=== PATIENT | female | born 1950 | race Caucasian/White ===

== ENCOUNTER 2017-04-28 18:24 | Inpatient (IN) | payer OTHER ==
[~2017-04-28] VITALS: Ht 170.2 cm; Wt 122.3 kg
[~2017-04-28 18:24] MED LIST: AUGMENTIN875 MG PO; FIORICET,ESG1 TABLET PO; KEFLEX500 MG PO; MEDROL DOSEPAK4 MG PO; MOTRIN600 MG PO; ULTRAM50 MG PO; UNABLEOBTAIN
[2017-04-28 19:18] LABS: HEMATOCRIT 39.7 % (36.0-46.0); HEMOGLOBIN 13.3 G/DL (11.9-15.5); MCH 26.8 PG (29.0-34.0); MCHC 33.5 G/DL (30.0-36.0); MCV 79.9 FL (83-99); PLATELET COUNT 286 K/uL (156-360); RBC DIS.WIDTH-CV 13.7 % (11.8-14.6); RBC DIS.WIDTH-SD 39.5 % (39-53); RED BLOOD COUNT 4.97 M/uL (3.80-5.20); WHITE BLOOD COUNT 10.4 K/uL (4.1-10.2)
[2017-04-28 19:29] LABS: CHLORIDE 89 mEq/L (99-109); POTASSIUM 5.3 mEq/L (3.7-5.4); SODIUM 122 mEq/L (136-147)
[2017-04-28 19:34] LABS: GFR ESTIMATE (CALCULATED) 12 mL/min/
[2017-04-28 19:35] LABS: UREA NITROGEN (BUN) 49 mg/dL (9-23)
[2017-04-28 19:41] LABS: TROP-I INTERPRETATION NEGATIVE; TROPONIN-I < 0.01 ng/mL (0.0-0.30)
[2017-04-28 19:48] LABS: GLUCOSE 600 mg/dL (70-99)
[2017-04-28 21:08] LABS: ALBUMIN 3.2 g/dL (3.2-4.8)
[2017-04-28 21:10] LABS: TOTAL PROTEIN 7.6 g/dL (6.4-8.3)
[2017-04-28 21:12] LABS: TOTAL BILIRUBIN 0.4 mg/dL (0.0-1.0)
[2017-04-28 21:13] LABS: ALKALINE PHOSPHATASE 165 IU/L (3-129)
[2017-04-28 21:16] LABS: ALT (GPT) 14 IU/L (3-49); AST (GOT) 11 IU/L (2-34); DIRECT BILIRUBIN 0.2 mg/dL (0.0-0.3)
[2017-04-28 21:17] LABS: LIPASE 28 U/L (1.0-51.0)
[2017-04-28 21:32] LABS: CARBON DIOXIDE (BICARBONATE) 29.1 MEQ/L (20-31)
[2017-04-28] MEDS ORDERED: BACTRIM,SEPT1 TABLET PO (21:46)
[2017-04-28] MEDS ORDERED: LYRICA75 MG PO (21:46)
[2017-04-28] MEDS ORDERED: LISINOPRIL-HCT1 EAC3 PO (21:47)
[2017-04-28] MEDS ORDERED: VERAPAMIL HCL240 MG PO (21:47)
[2017-04-28] MEDS ORDERED: GLIMEPIRIDE2 MG PO (21:47)
[2017-04-28] MEDS ORDERED: METFORMIN HCL1000 MG PO (21:48)
[2017-04-29 00:58] VITALS: BP 142/66
[2017-04-29 01:33] LABS: INTER. NORMALIZED RATIO 1.1
[2017-04-29 06:11] LABS: TROP-I INTERPRETATION NEGATIVE; TROPONIN-I < 0.01 ng/mL (0.0-0.30)
[2017-04-29 07:04] VITALS: BP 118/57
[2017-04-29 07:44] LABS: ALBUMIN 2.7 G/DL (3.2-4.8); CHLORIDE 94 MEQ/L (99-109); GLUCOSE 340 mg/dL (70-99); PHOSPHORUS 3.6 mg/dL (2.5-4.9); POTASSIUM 5.2 MEQ/L (3.7-5.4); UREA NITROGEN (BUN) 49 mg/dL (9-23)
[2017-04-29 07:50] LABS: CREATININE 3.3 MG/DL (0.6-1.3); GFR ESTIMATE (CALCULATED) 15 mL/min/; SODIUM 129 MEQ/L (136-147)
[2017-04-29 10:28] LABS: APPEARANCE SL.HAZY ((CLEAR)); BILIRUBIN NEGATIVE; BLOOD NEGATIVE; COLOR YELLOW ((YELLOW)); GLUCOSE (STRIP) >=500; KETONES NEGATIVE; LEUKOCYTES TRACE; NITRITE NEGATIVE; PROTEIN (STRIP) NEGATIVE; SPECIFIC GRAVITY 1.015 (1.000-1.030); UROBILINOGEN 0.2 MG/DL (0.2-1.0)
[2017-04-29 11:02] VITALS: BP 118/68
[2017-04-29 11:19] LABS: TROP-I INTERPRETATION NEGATIVE; TROPONIN-I < 0.01 ng/mL (0.0-0.30)
[2017-04-29 11:27] LABS: BACTERIA RARE /HPF; EPITHELIAL CELLS 1+ /HPF; MUCUS TRACE /LPF; RED BLOOD CELLS 0-5 /HPF (0-5); UCUL ADDED? YES
[2017-04-29 15:04] VITALS: BP 92/53
[2017-04-29 19:54] VITALS: BP 116/65
[2017-04-30] VITALS (7 sets, daily range): BP systolic 121–136; BP diastolic 60–75
[2017-04-30 07:27] LABS: BASOPHIL (%) 0.9 % (0-1); BASOPHIL COUNT 0.1 K/uL (0-0.1); EOSINOPHIL (%) 4.7 % (0-5); EOSINOPHIL COUNT 0.3 K/uL (0-0.3); HEMATOCRIT 34.7 % (36.0-46.0); IMMATURE GRANULOCYTE (%) 0.4 % (0.0-0.7); LYMPHOCYTE (%) 21.4 % (15-42); LYMPHOCYTE COUNT 1.5 K/uL (1.0-2.8); MCH 26.9 PG (29.0-34.0); MONOCYTE (%) 8.3 % (3-12); MONOCYTE COUNT 0.6 K/uL (0-0.8); NEUTROPHIL (%) 64.3 % (45-76); NEUTROPHIL COUNT 4.5 K/uL (1.8-6.4); PLATELET COUNT 235 K/uL (156-360); RBC DIS.WIDTH-CV 14.3 % (11.8-14.6); RBC DIS.WIDTH-SD 43.8 % (39-53); RED BLOOD COUNT 4.13 M/uL (3.80-5.20)
[2017-04-30 07:28] LABS: HEMOGLOBIN 11.1 G/DL (11.9-15.5)
[2017-04-30 07:40] LABS: INTER. NORMALIZED RATIO 1.3
[2017-04-30 07:43] LABS: PTT 58.3 SEC (25-37)
[2017-04-30 08:01] LABS: Estimated Average Glucose 355 mg/dL (70-123)
[2017-04-30 08:12] LABS: ALBUMIN 2.4 G/DL (3.2-4.8); C-REACTIVE PROTEIN 54.6 MG/L (0-10); CHLORIDE 103 MEQ/L (99-109); GLUCOSE 251 mg/dL (70-99); PHOSPHORUS 3.2 mg/dL (2.5-4.9); POTASSIUM 5.2 MEQ/L (3.7-5.4); UREA NITROGEN (BUN) 40 mg/dL (9-23)
[2017-04-30 08:15] LABS: CREATININE 2.5 MG/DL (0.6-1.3); GFR ESTIMATE (CALCULATED) 20 mL/min/; SODIUM 136 MEQ/L (136-147)
[2017-04-30 08:30] LABS: ERTH.SED.RATE 49 MM/HR (0-30)
[2017-05-01 04:03] VITALS: BP 126/62
[2017-05-01 06:23] LABS: HEMATOCRIT 31.8 % (36.0-46.0); HEMOGLOBIN 10.4 G/DL (11.9-15.5); MCH 27.5 PG (29.0-34.0); MCHC 32.7 G/DL (30.0-36.0); MCV 84.1 FL (83-99); PLATELET COUNT 231 K/uL (156-360); RBC DIS.WIDTH-CV 14.5 % (11.8-14.6); RBC DIS.WIDTH-SD 44.3 % (39-53); RED BLOOD COUNT 3.78 M/uL (3.80-5.20); WHITE BLOOD COUNT 7.8 K/uL (4.1-10.2)
[2017-05-01 06:38] LABS: INTER. NORMALIZED RATIO 1.9
[2017-05-01 07:36] LABS: ALBUMIN 2.3 G/DL (3.2-4.8); CHLORIDE 108 MEQ/L (99-109); CREATININE 2.2 MG/DL (0.6-1.3); GFR ESTIMATE (CALCULATED) 24 mL/min/; GLUCOSE 172 mg/dL (70-99); PHOSPHORUS 2.6 mg/dL (2.5-4.9); POTASSIUM 5.1 MEQ/L (3.7-5.4); SODIUM 140 MEQ/L (136-147); UREA NITROGEN (BUN) 36 mg/dL (9-23)
[2017-05-01 07:39] VITALS: BP 145/78
[2017-05-01 11:50] VITALS: BP 122/69
[2017-05-01 17:00] VITALS: BP 135/69
[2017-05-01 19:56] VITALS: BP 158/79
[2017-05-01 23:40] VITALS: BP 144/80
[2017-05-02 03:38] VITALS: BP 146/82
[2017-05-02 06:39] LABS: HEMATOCRIT 35.1 % (36.0-46.0); HEMOGLOBIN 10.9 G/DL (11.9-15.5); MCH 26.1 PG (29.0-34.0); MCHC 31.1 G/DL (30.0-36.0); MCV 84.2 FL (83-99); PLATELET COUNT 263 K/uL (156-360); RBC DIS.WIDTH-CV 14.4 % (11.8-14.6); RBC DIS.WIDTH-SD 44.1 % (39-53); RED BLOOD COUNT 4.17 M/uL (3.80-5.20); WHITE BLOOD COUNT 8.2 K/uL (4.1-10.2)
[2017-05-02 07:10] LABS: ALBUMIN 2.7 G/DL (3.2-4.8); CHLORIDE 106 MEQ/L (99-109); GFR ESTIMATE (CALCULATED) 26 mL/min/; GLUCOSE 204 mg/dL (70-99); PHOSPHORUS 3.1 mg/dL (2.5-4.9); POTASSIUM 5.2 MEQ/L (3.7-5.4); SODIUM 137 MEQ/L (136-147); UREA NITROGEN (BUN) 29 mg/dL (9-23)
[2017-05-02 08:01] VITALS: BP 141/72
[2017-05-02 12:16] VITALS: BP 159/70
[2017-05-02] MEDS ORDERED: ELIQUIS5 MG PO (12:25)
[2017-05-02 16:00] VITALS: BP 149/70
[2017-05-02 23:39] VITALS: BP 143/75
[2017-05-03 07:03] VITALS: BP 149/82
[2017-05-03 08:15] LABS: ALBUMIN 2.5 G/DL (3.2-4.8); CHLORIDE 105 MEQ/L (99-109); CREATININE 1.6 MG/DL (0.6-1.3); GFR ESTIMATE (CALCULATED) 34 mL/min/; GLUCOSE 191 mg/dL (70-99); PHOSPHORUS 3.2 mg/dL (2.5-4.9); POTASSIUM 5.6 MEQ/L (3.7-5.4); SODIUM 140 MEQ/L (136-147); UREA NITROGEN (BUN) 26 mg/dL (9-23)
[2017-05-03 15:32] VITALS: BP 147/71
[2017-05-03 21:00] VITALS: BP 132/75
[2017-05-04 00:05] VITALS: BP 134/76
[2017-05-04 07:04] LABS: ALBUMIN 2.4 G/DL (3.2-4.8); CHLORIDE 103 MEQ/L (99-109); CREATININE 1.8 MG/DL (0.6-1.3); GFR ESTIMATE (CALCULATED) 30 mL/min/; GLUCOSE 183 mg/dL (70-99); PHOSPHORUS 3.5 mg/dL (2.5-4.9); SODIUM 137 MEQ/L (136-147); UREA NITROGEN (BUN) 27 mg/dL (9-23)
[2017-05-04 07:25] VITALS: BP 121/67
[2017-05-04] MEDS ORDERED: POLYETHYLENE GL17 GM PO (11:07)
[2017-05-04] MEDS ORDERED: DOCUSATE SODIU100 MG PO (11:07)
[2017-05-04] MEDS ORDERED: BISACODYL5 MG PO (11:07)
[2017-05-04] MEDS ORDERED: GABAPENTIN600 MG PO (11:07)
[2017-05-04] MEDS ORDERED: TRAMADOL HCL50 MG PO (11:07)
[2017-05-04] MEDS ORDERED: LEVEMIR FL100 UNIT/1 SC (11:07)
[2017-05-04 16:12] VITALS: BP 119/63
[2017-05-04 23:33] VITALS: BP 118/67
[2017-05-05 07:15] VITALS: BP 140/77
[2017-05-05] MEDS ORDERED: GLIMEPIRIDE2 MG PO (16:32)
[2017-05-05 17:08] VITALS: BP 134/69
[2017-05-06 01:12] VITALS: BP 142/77
[2017-05-06 08:00] VITALS: BP 141/75
== END 2017-05-06 09:20 | disposition home health service (06) | DRG 300 ==
LOC: EME 18:24 → 5SOUTH 22:00 → EDOF 22:00 → ENRESERV 22:02 → 5SOUTH 04-29 00:30
PROVIDERS: Hospitalist; Internal Medicine; Physician Assistant
DX: I82.421 Acute embolism and thrombosis of right iliac vein (principal); N17.9 Acute kidney failure, unspecified; L03.115 Cellulitis of right lower limb; E11.65 Type 2 diabetes mellitus with hyperglycemia; L89.312 Pressure ulcer of right buttock, stage 2; L89.150 Pressure ulcer of sacral region, unstageable; L89.620 Pressure ulcer of left heel, unstageable; I82.431 Acute embolism and thrombosis of right popliteal vein; I82.411 Acute embolism and thrombosis of right femoral vein; I82.4Z1 Acute embolism and thrombosis of unspecified deep veins of right distal lower extremity; L03.116 Cellulitis of left lower limb; E11.40 Type 2 diabetes mellitus with diabetic neuropathy, unspecified; S90.819A Abrasion, unspecified foot, initial encounter; L08.9 Local infection of the skin and subcutaneous tissue, unspecified; L30.9 Dermatitis, unspecified; I12.9 Hypertensive chronic kidney disease with stage 1 through stage 4 chronic kidney disease, or unspecified chronic kidney disease; N18.2 Chronic kidney disease, stage 2 (mild); E86.0 Dehydration; E87.1 Hypo-osmolality and hyponatremia; E11.22 Type 2 diabetes mellitus with diabetic chronic kidney disease; E11.51 Type 2 diabetes mellitus with diabetic peripheral angiopathy without gangrene; E11.622 Type 2 diabetes mellitus with other skin ulcer; E66.01 Morbid (severe) obesity due to excess calories; E87.2 Acidosis; E87.5 Hyperkalemia; I25.10 Atherosclerotic heart disease of native coronary artery without angina pectoris; Z68.39 Body mass index [BMI] 39.0-39.9, adult; K59.00 Constipation, unspecified; I83.224 Varicose veins of left lower extremity with both ulcer of heel and midfoot and inflammation; L97.421 Non-pressure chronic ulcer of left heel and midfoot limited to breakdown of skin; R13.10 Dysphagia, unspecified; Z79.84 Long term (current) use of oral hypoglycemic drugs; Z91.14 Patient's other noncompliance with medication regimen; I83.218 Varicose veins of right lower extremity with both ulcer of other part of lower extremity and inflammation; L97.819 Non-pressure chronic ulcer of other part of right lower leg with unspecified severity
CPT/HCPCS: 71020; 74176; 78582; 80048; 80069; 80076; 81003; 82010; 82330; 82803; 82948; 83036; 83605; 83690; 83735; 83930; 83935; 84300; 84484; 85025; 85027; 85610; 85651; 85730; 86140; 87040; 87070; 87075; 87077; 87086; 87186; 87205; 89190; 93005; 93925; 93970; 99281; 99285; A6260; A9540; A9567; C1755; C9113; J1815; J2270; J2405; J2543; J3010; J3370; J7030; J7050; J7120; S0028

== ENCOUNTER 2017-06-10 20:30 | Inpatient (IN) | payer OTHER ==
[~2017-06-10] VITALS: Ht 170.2 cm; Wt 117.0 kg
[~2017-06-10 20:30] MED LIST changes: +BACTRIM,SEPT1 TABLET PO; +BISACODYL5 MG PO; +DOCUSATE SODIU100 MG PO; +ELIQUIS5 MG PO; +GABAPENTIN600 MG PO; +GLIMEPIRIDE2 MG PO; +LEVEMIR FL100 UNIT/1 SC; +LISINOPRIL-HCT1 EAC3 PO; +LYRICA75 MG PO; +METFORMIN HCL1000 MG PO; +POLYETHYLENE GL17 GM PO; +TRAMADOL HCL50 MG PO; +VERAPAMIL HCL240 MG PO
[2017-06-10 23:09] LABS: BASOPHIL (%) 0.4 % (0-1); BASOPHIL COUNT 0.1 K/uL (0-0.1); EOSINOPHIL (%) 0.5 % (0-5); EOSINOPHIL COUNT 0.1 K/uL (0-0.3); HEMATOCRIT 43.8 % (36.0-46.0); HEMOGLOBIN 14.3 G/DL (11.9-15.5); IMMATURE GRANULOCYTE (%) 1.1 % (0.0-0.7); LYMPHOCYTE (%) 9.2 % (15-42); LYMPHOCYTE COUNT 1.9 K/uL (1.0-2.8); MCH 26.2 PG (29.0-34.0); MCHC 32.6 G/DL (30.0-36.0); MCV 80.4 FL (83-99); MONOCYTE (%) 3.4 % (3-12); MONOCYTE COUNT 0.7 K/uL (0-0.8); NEUTROPHIL (%) 85.4 % (45-76); NEUTROPHIL COUNT 17.3 K/uL (1.8-6.4); PLATELET COUNT 549 K/uL (156-360); RBC DIS.WIDTH-CV 13.6 % (11.8-14.6); RBC DIS.WIDTH-SD 39.8 % (39-53); RED BLOOD COUNT 5.45 M/uL (3.80-5.20); WHITE BLOOD COUNT 20.2 K/uL (4.1-10.2)
[2017-06-10 23:19] LABS: CHLORIDE 95 mEq/L (99-109); POTASSIUM 5.4 mEq/L (3.7-5.4); SODIUM 128 mEq/L (136-147)
[2017-06-10 23:20] LABS: GLUCOSE 237 mg/dL (70-99)
[2017-06-10 23:24] LABS: CREATININE 3.9 mg/dL (0.6-1.3); GFR ESTIMATE (CALCULATED) 12 mL/min/
[2017-06-10 23:25] LABS: UREA NITROGEN (BUN) 75 mg/dL (9-23)
[2017-06-10 23:28] LABS: CREATINE KINASE 140 IU/L (1-294)
[2017-06-10 23:34] LABS: ALBUMIN 3.3 g/dL (3.2-4.8)
[2017-06-10 23:37] LABS: TOTAL PROTEIN 8.4 g/dL (6.4-8.3)
[2017-06-10 23:39] LABS: TOTAL BILIRUBIN 0.3 mg/dL (0.0-1.0)
[2017-06-10 23:40] LABS: ALKALINE PHOSPHATASE 157 IU/L (3-129)
[2017-06-10 23:42] LABS: AST (GOT) 14 IU/L (2-34)
[2017-06-10 23:43] LABS: ALT (GPT) 11 IU/L (3-49); DIRECT BILIRUBIN 0.2 mg/dL (0.0-0.3)
[2017-06-10 23:44] LABS: LIPASE 55 U/L (1.0-51.0)
[2017-06-11] LABS: APPEARANCE CLOUDY ((CLEAR)); BILIRUBIN NEGATIVE; BLOOD NEGATIVE; COLOR YELLOW ((YELLOW)); GLUCOSE (STRIP) NEGATIVE; KETONES NEGATIVE; LEUKOCYTES LARGE; NITRITE NEGATIVE; PROTEIN (STRIP) NEGATIVE; SPECIFIC GRAVITY 1.015 (1.000-1.030)
[2017-06-11 00:18] LABS: RED BLOOD CELLS 0-5 /HPF (0-5); WHITE BLOOD CELLS 20-30 /HPF (0-5)
[2017-06-11 00:19] LABS: BACTERIA 2+ /HPF; EPITHELIAL CELLS 1+ /HPF; MUCUS NONE SEEN /LPF
[2017-06-11 03:16] LABS: TROP-I INTERPRETATION NEGATIVE; TROPONIN-I < 0.01 ng/mL (0.0-0.30)
[2017-06-11 03:48] VITALS: BP 140/75
[2017-06-11 05:08] LABS: URIC ACID 11.9 mg/dL (3.1-9.2)
[2017-06-11 07:10] VITALS: BP 138/78
[2017-06-11 08:52] LABS: HEMATOCRIT 38.9 % (36.0-46.0); HEMOGLOBIN 12.7 G/DL (11.9-15.5); MCH 26.7 PG (29.0-34.0); MCHC 32.6 G/DL (30.0-36.0); MCV 81.7 FL (83-99); PLATELET COUNT 473 K/uL (156-360); RBC DIS.WIDTH-CV 13.7 % (11.8-14.6); RBC DIS.WIDTH-SD 40.4 % (39-53); RED BLOOD COUNT 4.76 M/uL (3.80-5.20); WHITE BLOOD COUNT 14.2 K/uL (4.1-10.2)
[2017-06-11 09:05] LABS: CHLORIDE 101 MEQ/L (99-109); GLUCOSE 147 mg/dL (70-99); POTASSIUM 4.9 MEQ/L (3.7-5.4); SODIUM 133 MEQ/L (136-147); UREA NITROGEN (BUN) 66 mg/dL (9-23)
[2017-06-11 09:06] LABS: CREATININE 2.8 MG/DL (0.6-1.3); GFR ESTIMATE (CALCULATED) 18 mL/min/
[2017-06-11 09:07] LABS: TROP-I INTERPRETATION NEGATIVE; TROPONIN-I < 0.01 ng/mL (0.0-0.30)
[2017-06-11 12:30] VITALS: BP 142/76
[2017-06-11 16:13] VITALS: BP 154/78
[2017-06-11 16:40] LABS: TROP-I INTERPRETATION NEGATIVE; TROPONIN-I < 0.01 ng/mL (0.0-0.30)
[2017-06-11 16:41] LABS: CHLORIDE 103 MEQ/L (99-109); CREATININE 2.7 MG/DL (0.6-1.3); GFR ESTIMATE (CALCULATED) 19 mL/min/; SODIUM 132 MEQ/L (136-147); UREA NITROGEN (BUN) 59 mg/dL (9-23)
[2017-06-11 16:42] LABS: GLUCOSE 97 mg/dL (70-99)
[2017-06-11 19:05] VITALS: BP 127/56
[2017-06-11 23:05] VITALS: BP 120/56
[2017-06-12 04:00] VITALS: BP 118/56
[2017-06-12 07:13] VITALS: BP 119/56
[2017-06-12 07:19] LABS: BASOPHIL (%) 0.4 % (0-1); BASOPHIL COUNT 0.1 K/uL (0-0.1); EOSINOPHIL (%) 2.3 % (0-5); EOSINOPHIL COUNT 0.3 K/uL (0-0.3); HEMATOCRIT 33.7 % (36.0-46.0); IMMATURE GRANULOCYTE (%) 0.7 % (0.0-0.7); LYMPHOCYTE (%) 15.6 % (15-42); LYMPHOCYTE COUNT 2.1 K/uL (1.0-2.8); MCH 25.8 PG (29.0-34.0); MCHC 31.8 G/DL (30.0-36.0); MCV 81.4 FL (83-99); MONOCYTE (%) 6.6 % (3-12); MONOCYTE COUNT 0.9 K/uL (0-0.8); NEUTROPHIL (%) 74.4 % (45-76); PLATELET COUNT 444 K/uL (156-360); RBC DIS.WIDTH-CV 13.7 % (11.8-14.6); RBC DIS.WIDTH-SD 40.8 % (39-53); RED BLOOD COUNT 4.14 M/uL (3.80-5.20); WHITE BLOOD COUNT 13.4 K/uL (4.1-10.2)
[2017-06-12 07:24] LABS: HEMOGLOBIN 10.7 G/DL (11.9-15.5)
[2017-06-12 08:01] LABS: CHLORIDE 105 MEQ/L (99-109); CREATININE 2.4 MG/DL (0.6-1.3); GFR ESTIMATE (CALCULATED) 21 mL/min/; POTASSIUM 5.3 MEQ/L (3.7-5.4); SODIUM 135 MEQ/L (136-147); UREA NITROGEN (BUN) 56 mg/dL (9-23)
[2017-06-12 08:03] LABS: GLUCOSE 43 mg/dL (70-99)
[2017-06-12 11:37] VITALS: BP 101/55
[2017-06-12 15:35] VITALS: BP 116/56
[2017-06-12 20:14] VITALS: BP 122/60
[2017-06-12 22:59] VITALS: BP 110/57
[2017-06-13 06:22] LABS: ALBUMIN 1.9 G/DL (3.2-4.8); CHLORIDE 104 MEQ/L (99-109); CREATININE 2.1 MG/DL (0.6-1.3); GFR ESTIMATE (CALCULATED) 25 mL/min/; PHOSPHORUS 2.4 mg/dL (2.5-4.9); POTASSIUM 4.8 MEQ/L (3.7-5.4); SODIUM 135 MEQ/L (136-147); UREA NITROGEN (BUN) 42 mg/dL (9-23)
[2017-06-13 06:23] LABS: GLUCOSE 254 mg/dL (70-99)
[2017-06-13 07:16] LABS: HEMATOCRIT 33.1 % (36.0-46.0); HEMOGLOBIN 10.5 G/DL (11.9-15.5); MCH 25.8 PG (29.0-34.0); MCHC 31.7 G/DL (30.0-36.0); MCV 81.3 FL (83-99); PLATELET COUNT 410 K/uL (156-360); RBC DIS.WIDTH-CV 13.8 % (11.8-14.6); RBC DIS.WIDTH-SD 40.8 % (39-53); RED BLOOD COUNT 4.07 M/uL (3.80-5.20); WHITE BLOOD COUNT 12.2 K/uL (4.1-10.2)
[2017-06-13 08:50] VITALS: BP 138/68
[2017-06-13 15:26] VITALS: BP 149/74
[2017-06-14 00:06] VITALS: BP 148/75
[2017-06-14 06:02] LABS: BASOPHIL (%) 0.3 % (0-1); EOSINOPHIL (%) 10.1 % (0-5); EOSINOPHIL COUNT 1.1 K/uL (0-0.3); HEMATOCRIT 32.7 % (36.0-46.0); HEMOGLOBIN 10.4 G/DL (11.9-15.5); IMMATURE GRANULOCYTE (%) 0.7 % (0.0-0.7); LYMPHOCYTE (%) 15.7 % (15-42); LYMPHOCYTE COUNT 1.8 K/uL (1.0-2.8); MCH 26.3 PG (29.0-34.0); MCHC 31.8 G/DL (30.0-36.0); MCV 82.6 FL (83-99); MONOCYTE (%) 5.4 % (3-12); MONOCYTE COUNT 0.6 K/uL (0-0.8); NEUTROPHIL (%) 67.8 % (45-76); NEUTROPHIL COUNT 7.6 K/uL (1.8-6.4); PLATELET COUNT 401 K/uL (156-360); RBC DIS.WIDTH-SD 42.1 % (39-53); RED BLOOD COUNT 3.96 M/uL (3.80-5.20); WHITE BLOOD COUNT 11.2 K/uL (4.1-10.2)
[2017-06-14 06:29] LABS: ALBUMIN 2.6 G/DL (3.2-4.8); CHLORIDE 103 MEQ/L (99-109); CREATININE 1.8 MG/DL (0.6-1.3); GFR ESTIMATE (CALCULATED) 30 mL/min/; GLUCOSE 197 mg/dL (70-99); PHOSPHORUS 2.3 mg/dL (2.5-4.9); POTASSIUM 5.2 MEQ/L (3.7-5.4); SODIUM 134 MEQ/L (136-147); UREA NITROGEN (BUN) 35 mg/dL (9-23)
[2017-06-14 08:00] VITALS: BP 116/65
[2017-06-14 16:04] VITALS: BP 126/72
[2017-06-14 23:30] VITALS: BP 136/74
[2017-06-15] MEDS ORDERED: LOPRESSOR25 MG PO (07:04)
[2017-06-15 07:05] VITALS: BP 126/68
[2017-06-15] MEDS ORDERED: CEFEPIME HCL1 GM IV (07:05)
[2017-06-15] MEDS ORDERED: PANTOPRAZOLE SO40 MG PO (07:05)
[2017-06-15 07:37] LABS: BASOPHIL (%) 0.3 % (0-1); EOSINOPHIL (%) 12.1 % (0-5); EOSINOPHIL COUNT 1.4 K/uL (0-0.3); HEMATOCRIT 32.9 % (36.0-46.0); HEMOGLOBIN 10.5 G/DL (11.9-15.5); IMMATURE GRANULOCYTE (%) 0.7 % (0.0-0.7); LYMPHOCYTE (%) 18.1 % (15-42); LYMPHOCYTE COUNT 2.1 K/uL (1.0-2.8); MCH 26.4 PG (29.0-34.0); MCHC 31.9 G/DL (30.0-36.0); MCV 82.9 FL (83-99); MONOCYTE COUNT 0.7 K/uL (0-0.8); NEUTROPHIL (%) 62.8 % (45-76); NEUTROPHIL COUNT 7.1 K/uL (1.8-6.4); PLATELET COUNT 410 K/uL (156-360); RBC DIS.WIDTH-CV 14.1 % (11.8-14.6); RBC DIS.WIDTH-SD 42.9 % (39-53); RED BLOOD COUNT 3.97 M/uL (3.80-5.20); WHITE BLOOD COUNT 11.4 K/uL (4.1-10.2)
[2017-06-15 08:00] LABS: CHLORIDE 103 MEQ/L (99-109); CREATININE 1.7 MG/DL (0.6-1.3); GFR ESTIMATE (CALCULATED) 32 mL/min/; GLUCOSE 169 mg/dL (70-99); PHOSPHORUS 2.4 mg/dL (2.5-4.9); POTASSIUM 5.4 MEQ/L (3.7-5.4); SODIUM 135 MEQ/L (136-147); UREA NITROGEN (BUN) 30 mg/dL (9-23)
[2017-06-15] MEDS ORDERED: PHOSPHA250 MG PO (10:27)
[2017-06-15 17:13] VITALS: BP 146/76
[2017-06-16 00:09] VITALS: BP 125/60
[2017-06-16 07:05] VITALS: BP 132/75
[2017-06-16 07:15] LABS: BASOPHIL (%) 0.3 % (0-1); EOSINOPHIL (%) 11.6 % (0-5); EOSINOPHIL COUNT 1.3 K/uL (0-0.3); HEMATOCRIT 33.1 % (36.0-46.0); HEMOGLOBIN 10.5 G/DL (11.9-15.5); IMMATURE GRANULOCYTE (%) 1.2 % (0.0-0.7); LYMPHOCYTE (%) 19.7 % (15-42); LYMPHOCYTE COUNT 2.3 K/uL (1.0-2.8); MCH 26.4 PG (29.0-34.0); MCHC 31.7 G/DL (30.0-36.0); MCV 83.2 FL (83-99); MONOCYTE COUNT 0.7 K/uL (0-0.8); NEUTROPHIL (%) 61.2 % (45-76); PLATELET COUNT 394 K/uL (156-360); RBC DIS.WIDTH-CV 14.1 % (11.8-14.6); RBC DIS.WIDTH-SD 42.7 % (39-53); RED BLOOD COUNT 3.98 M/uL (3.80-5.20); WHITE BLOOD COUNT 11.5 K/uL (4.1-10.2)
[2017-06-16 07:42] LABS: CHLORIDE 102 MEQ/L (99-109); CREATININE 1.5 MG/DL (0.6-1.3); GFR ESTIMATE (CALCULATED) 37 mL/min/; GLUCOSE 187 mg/dL (70-99); POTASSIUM 5.1 MEQ/L (3.7-5.4); SODIUM 135 MEQ/L (136-147); UREA NITROGEN (BUN) 29 mg/dL (9-23)
== END 2017-06-16 16:22 | disposition home or self-care (01) | DRG 872 ==
LOC: EME 20:30 → 2EAST 06-11 01:48 → EDOF 06-11 01:48 → ENRESERV 06-11 01:50 → 2EAST 06-11 03:13
PROVIDERS: Hospitalist; Internal Medicine; Internal Medicine Nephrology; Physician Assistant
DX: A41.9 Sepsis, unspecified organism (principal); N39.0 Urinary tract infection, site not specified; N17.9 Acute kidney failure, unspecified; L89.302 Pressure ulcer of unspecified buttock, stage 2; I83.014 Varicose veins of right lower extremity with ulcer of heel and midfoot; L97.421 Non-pressure chronic ulcer of left heel and midfoot limited to breakdown of skin; L97.411 Non-pressure chronic ulcer of right heel and midfoot limited to breakdown of skin; E66.01 Morbid (severe) obesity due to excess calories; E11.65 Type 2 diabetes mellitus with hyperglycemia; I12.9 Hypertensive chronic kidney disease with stage 1 through stage 4 chronic kidney disease, or unspecified chronic kidney disease; I83.024 Varicose veins of left lower extremity with ulcer of heel and midfoot; E11.22 Type 2 diabetes mellitus with diabetic chronic kidney disease; E11.42 Type 2 diabetes mellitus with diabetic polyneuropathy; E11.622 Type 2 diabetes mellitus with other skin ulcer; E11.649 Type 2 diabetes mellitus with hypoglycemia without coma; N18.3 Chronic kidney disease, stage 3 (moderate); E78.5 Hyperlipidemia, unspecified; I89.0 Lymphedema, not elsewhere classified; L30.4 Erythema intertrigo; L03.116 Cellulitis of left lower limb; L03.115 Cellulitis of right lower limb; B96.5 Pseudomonas (aeruginosa) (mallei) (pseudomallei) as the cause of diseases classified elsewhere; E87.1 Hypo-osmolality and hyponatremia; J98.11 Atelectasis; K59.09 Other constipation; R79.89 Other specified abnormal findings of blood chemistry; N28.1 Cyst of kidney, acquired; E83.51 Hypocalcemia; E87.0 Hyperosmolality and hypernatremia; E87.5 Hyperkalemia; E66.9 Obesity, unspecified; I87.2 Venous insufficiency (chronic) (peripheral); G89.29 Other chronic pain; K21.9 Gastro-esophageal reflux disease without esophagitis; E83.39 Other disorders of phosphorus metabolism; E86.0 Dehydration; E87.2 Acidosis; M85.80 Other specified disorders of bone density and structure, unspecified site; I87.8 Other specified disorders of veins; B96.20 Unspecified Escherichia coli [E. coli] as the cause of diseases classified elsewhere; M19.90 Unspecified osteoarthritis, unspecified site; Z86.718 Personal history of other venous thrombosis and embolism; Z82.49 Family history of ischemic heart disease and other diseases of the circulatory system; Z22.322 Carrier or suspected carrier of Methicillin resistant Staphylococcus aureus; Z68.37 Body mass index [BMI] 37.0-37.9, adult; Z79.4 Long term (current) use of insulin; Z87.891 Personal history of nicotine dependence; Z83.3 Family history of diabetes mellitus; Z87.820 Personal history of traumatic brain injury
CPT/HCPCS: 71045; 71250; 73590; 73630; 74176; 80048; 80048 91; 80069; 80076; 81003; 82010; 82436; 82550; 82800; 82948; 83605; 83690; 83880; 83930; 83935; 84100; 84133; 84300; 84443; 84484; 84550; 85025; 85027; 87040; 87070; 87075; 87076; 87077; 87086; 87147; 87186; 87205; 87502; 90686; 93005; 97530 GO; 99281; 99285; C9113; J0692; J0696; J1815; J2405; J2765; J3370; J7030; J7120; P9047

== ENCOUNTER 2017-06-23 19:39 | Inpatient (IN) | payer OTHER ==
[~2017-06-23] VITALS: Ht 170.2 cm; Wt 109.4 kg
[~2017-06-23 19:39] MED LIST changes: +CEFEPIME HCL1 GM IV; +LOPRESSOR25 MG PO; +PANTOPRAZOLE SO40 MG PO; +PHOSPHA250 MG PO
[2017-06-23 22:07] LABS: BASOPHIL (%) 0.4 % (0-1); BASOPHIL COUNT 0.1 K/uL (0-0.1); EOSINOPHIL (%) 1.2 % (0-5); EOSINOPHIL COUNT 0.2 K/uL (0-0.3); HEMATOCRIT 36.1 % (36.0-46.0); HEMOGLOBIN 11.7 G/DL (11.9-15.5); IMMATURE GRANULOCYTE (%) 0.8 % (0.0-0.7); LYMPHOCYTE (%) 11.3 % (15-42); LYMPHOCYTE COUNT 1.9 K/uL (1.0-2.8); MCH 26.2 PG (29.0-34.0); MCHC 32.4 G/DL (30.0-36.0); MCV 80.8 FL (83-99); MONOCYTE (%) 4.3 % (3-12); MONOCYTE COUNT 0.7 K/uL (0-0.8); NEUTROPHIL COUNT 14.1 K/uL (1.8-6.4); PLATELET COUNT 439 K/uL (156-360); RBC DIS.WIDTH-CV 14.2 % (11.8-14.6); RBC DIS.WIDTH-SD 41.5 % (39-53); RED BLOOD COUNT 4.47 M/uL (3.80-5.20); WHITE BLOOD COUNT 17.2 K/uL (4.1-10.2)
[2017-06-23 22:36] LABS: ALBUMIN 2.9 G/DL (3.2-4.8); CHLORIDE 98 MEQ/L (99-109); POTASSIUM 5.3 MEQ/L (3.7-5.4); SODIUM 131 MEQ/L (136-147); TOTAL BILIRUBIN 0.4 MG/DL (0.0-1.0)
[2017-06-23 22:42] LABS: ALKALINE PHOSPHATASE 107 IU/L (3-129); ALT (GPT) 12 IU/L (3-49); AST (GOT) 12 IU/L (2-34); CREATININE 2.6 MG/DL (0.6-1.3); GFR ESTIMATE (CALCULATED) 19 mL/min/; GLUCOSE 183 mg/dL (70-99); LIPASE 12 U/L (1.0-51.0); TOTAL PROTEIN 6.8 G/DL (6.4-8.3); UREA NITROGEN (BUN) 59 mg/dL (9-23)
[2017-06-24 00:43] LABS: APPEARANCE TURBID ((CLEAR)); BILIRUBIN NEGATIVE; BLOOD SMALL; COLOR YELLOW ((YELLOW)); GLUCOSE (STRIP) NEGATIVE; KETONES NEGATIVE; LEUKOCYTES TRACE; NITRITE NEGATIVE; PROTEIN (STRIP) 30; SPECIFIC GRAVITY 1.025 (1.000-1.030); UROBILINOGEN 0.2 MG/DL (0.2-1.0)
[2017-06-24] MEDS ORDERED: AMARYL2 MG PO (00:46)
[2017-06-24] MEDS ORDERED: ELIQUIS5 MG PO (00:46)
[2017-06-24] MEDS ORDERED: GABAPENTIN600 MG PO (00:46)
[2017-06-24 01:23] LABS: BACTERIA 1+ /HPF; EPITHELIAL CELLS 3+ /HPF; MUCUS NONE SEEN /LPF; UCUL ADDED? YES; WHITE BLOOD CELLS 15-20 /HPF (0-5)
[2017-06-24 04:37] VITALS: BP 117/69
[2017-06-24 08:07] VITALS: BP 104/63
[2017-06-24 11:11] LABS: HEMATOCRIT 33.8 % (36.0-46.0); HEMOGLOBIN 10.8 G/DL (11.9-15.5); MCH 26.3 PG (29.0-34.0); MCV 82.4 FL (83-99); PLATELET COUNT 400 K/uL (156-360); RBC DIS.WIDTH-CV 14.4 % (11.8-14.6); WHITE BLOOD COUNT 11.5 K/uL (4.1-10.2)
[2017-06-24 11:38] LABS: CHLORIDE 105 MEQ/L (99-109); CREATININE 2.2 MG/DL (0.6-1.3); GFR ESTIMATE (CALCULATED) 24 mL/min/; GLUCOSE 131 mg/dL (70-99); POTASSIUM 5.8 MEQ/L (3.7-5.4); SODIUM 135 MEQ/L (136-147); UREA NITROGEN (BUN) 53 mg/dL (9-23)
[2017-06-24 12:40] VITALS: BP 116/67
[2017-06-24 16:17] VITALS: BP 137/61
[2017-06-24 20:19] VITALS: BP 110/60
[2017-06-24 23:16] VITALS: BP 120/65
[2017-06-25 03:27] VITALS: BP 119/60
[2017-06-25 06:35] LABS: BASOPHIL (%) 0.5 % (0-1); BASOPHIL COUNT 0.1 K/uL (0-0.1); EOSINOPHIL (%) 5.6 % (0-5); EOSINOPHIL COUNT 0.7 K/uL (0-0.3); HEMATOCRIT 30.4 % (36.0-46.0); HEMOGLOBIN 9.8 G/DL (11.9-15.5); IMMATURE GRANULOCYTE (%) 0.3 % (0.0-0.7); LYMPHOCYTE COUNT 2.5 K/uL (1.0-2.8); MCH 26.3 PG (29.0-34.0); MCHC 32.2 G/DL (30.0-36.0); MCV 81.7 FL (83-99); MONOCYTE (%) 5.9 % (3-12); MONOCYTE COUNT 0.7 K/uL (0-0.8); NEUTROPHIL (%) 67.7 % (45-76); NEUTROPHIL COUNT 8.5 K/uL (1.8-6.4); PLATELET COUNT 391 K/uL (156-360); RBC DIS.WIDTH-CV 14.4 % (11.8-14.6); RBC DIS.WIDTH-SD 42.5 % (39-53); RED BLOOD COUNT 3.72 M/uL (3.80-5.20); WHITE BLOOD COUNT 12.6 K/uL (4.1-10.2)
[2017-06-25 06:59] LABS: CHLORIDE 106 MEQ/L (99-109); CREATININE 2.2 MG/DL (0.6-1.3); GFR ESTIMATE (CALCULATED) 24 mL/min/; SODIUM 137 MEQ/L (136-147); UREA NITROGEN (BUN) 44 mg/dL (9-23)
[2017-06-25 07:00] LABS: GLUCOSE 45 mg/dL (70-99); POTASSIUM 3.9 MEQ/L (3.7-5.4)
[2017-06-25 07:07] VITALS: BP 107/53
[2017-06-25 15:47] VITALS: BP 104/51
[2017-06-26 00:03] VITALS: BP 126/59
[2017-06-26 03:40] VITALS: BP 119/60
[2017-06-26 06:42] LABS: CHLORIDE 108 MEQ/L (99-109); CREATININE 1.9 MG/DL (0.6-1.3); GFR ESTIMATE (CALCULATED) 28 mL/min/; SODIUM 139 MEQ/L (136-147); UREA NITROGEN (BUN) 34 mg/dL (9-23)
[2017-06-26 06:43] LABS: GLUCOSE 112 mg/dL (70-99)
[2017-06-26 06:44] LABS: POTASSIUM 4.7 MEQ/L (3.7-5.4)
[2017-06-26 07:16] VITALS: BP 119/59
[2017-06-26 15:26] VITALS: BP 132/83
[2017-06-26 23:43] VITALS: BP 126/59
[2017-06-27 07:50] VITALS: BP 132/68
[2017-06-27 13:10] LABS: HEMATOCRIT 33.4 % (36.0-46.0); HEMOGLOBIN 10.5 G/DL (11.9-15.5); MCH 26.3 PG (29.0-34.0); MCHC 31.4 G/DL (30.0-36.0); MCV 83.5 FL (83-99); PLATELET COUNT 406 K/uL (156-360); RBC DIS.WIDTH-CV 14.7 % (11.8-14.6); RBC DIS.WIDTH-SD 44.7 % (39-53); WHITE BLOOD COUNT 8.9 K/uL (4.1-10.2)
[2017-06-27 13:41] LABS: CHLORIDE 109 MEQ/L (99-109); CREATININE 1.5 MG/DL (0.6-1.3); GFR ESTIMATE (CALCULATED) 37 mL/min/; POTASSIUM 4.7 MEQ/L (3.7-5.4); SODIUM 139 MEQ/L (136-147); UREA NITROGEN (BUN) 28 mg/dL (9-23)
[2017-06-27 13:53] LABS: GLUCOSE 212 mg/dL (70-99)
[2017-06-27 16:33] VITALS: BP 108/64; BP 155/77
[2017-06-27 23:55] VITALS: BP 156/73
[2017-06-28 07:22] VITALS: BP 138/80
[2017-06-28 08:45] LABS: HEMATOCRIT 32.3 % (36.0-46.0); HEMOGLOBIN 10.4 G/DL (11.9-15.5); MCH 26.5 PG (29.0-34.0); MCHC 32.2 G/DL (30.0-36.0); MCV 82.4 FL (83-99); PLATELET COUNT 396 K/uL (156-360); RBC DIS.WIDTH-CV 14.8 % (11.8-14.6); RBC DIS.WIDTH-SD 44.4 % (39-53); RED BLOOD COUNT 3.92 M/uL (3.80-5.20)
[2017-06-28 09:43] LABS: CHLORIDE 109 MEQ/L (99-109); CREATININE 1.5 MG/DL (0.6-1.3); GFR ESTIMATE (CALCULATED) 37 mL/min/; GLUCOSE 89 mg/dL (70-99); POTASSIUM 4.7 MEQ/L (3.7-5.4); SODIUM 140 MEQ/L (136-147); UREA NITROGEN (BUN) 25 mg/dL (9-23)
[2017-06-28 23:24] VITALS: BP 130/62
[2017-06-29 07:55] VITALS: BP 124/70
[2017-06-29 08:36] LABS: CHLORIDE 109 MEQ/L (99-109); CREATININE 1.5 MG/DL (0.6-1.3); GFR ESTIMATE (CALCULATED) 37 mL/min/; POTASSIUM 4.8 MEQ/L (3.7-5.4); SODIUM 140 MEQ/L (136-147); UREA NITROGEN (BUN) 23 mg/dL (9-23)
[2017-06-29 08:39] LABS: GLUCOSE 140 mg/dL (70-99)
[2017-06-29 16:59] VITALS: BP 128/72
[2017-06-30] VITALS: BP 149/85
[2017-06-30 05:58] LABS: HEMATOCRIT 32.9 % (36.0-46.0); HEMOGLOBIN 10.4 G/DL (11.9-15.5); MCH 26.3 PG (29.0-34.0); MCHC 31.6 G/DL (30.0-36.0); MCV 83.1 FL (83-99); PLATELET COUNT 393 K/uL (156-360); RBC DIS.WIDTH-CV 14.6 % (11.8-14.6); RBC DIS.WIDTH-SD 44.2 % (39-53); RED BLOOD COUNT 3.96 M/uL (3.80-5.20); WHITE BLOOD COUNT 8.9 K/uL (4.1-10.2)
[2017-06-30 07:58] VITALS: BP 134/78
[2017-06-30 08:11] LABS: APPEARANCE CLEAR ((CLEAR)); BILIRUBIN NEGATIVE; BLOOD SMALL; COLOR YELLOW ((YELLOW)); GLUCOSE (STRIP) NEGATIVE; KETONES NEGATIVE; LEUKOCYTES NEGATIVE; NITRITE NEGATIVE; PROTEIN (STRIP) NEGATIVE; SPECIFIC GRAVITY 1.011 (1.000-1.030); UROBILINOGEN 0.2 MG/DL (0.2-1.0)
[2017-06-30 08:18] LABS: BACTERIA RARE /HPF; EPITHELIAL CELLS RARE /HPF; MUCUS NONE SEEN /LPF; RED BLOOD CELLS 0-5 /HPF (0-5); WHITE BLOOD CELLS 0-5 /HPF (0-5)
[2017-06-30 15:37] VITALS: BP 162/88
[2017-06-30 23:49] VITALS: BP 158/74
[2017-07-01 06:35] LABS: CHLORIDE 107 MEQ/L (99-109); CREATININE 1.5 MG/DL (0.6-1.3); GFR ESTIMATE (CALCULATED) 37 mL/min/; POTASSIUM 4.7 MEQ/L (3.7-5.4); SODIUM 140 MEQ/L (136-147); UREA NITROGEN (BUN) 21 mg/dL (9-23)
[2017-07-01 06:36] LABS: GLUCOSE 101 mg/dL (70-99)
[2017-07-01 08:15] VITALS: BP 138/70
[2017-07-01 11:44] VITALS: BP 144/82
[2017-07-01 15:20] VITALS: BP 137/73
[2017-07-02] VITALS: BP 151/70; BP 163/88
[2017-07-02 06:02] LABS: HEMATOCRIT 30.7 % (36.0-46.0); HEMOGLOBIN 9.7 G/DL (11.9-15.5); MCH 26.2 PG (29.0-34.0); MCHC 31.6 G/DL (30.0-36.0); PLATELET COUNT 355 K/uL (156-360); RBC DIS.WIDTH-CV 14.6 % (11.8-14.6); RBC DIS.WIDTH-SD 44.1 % (39-53); WHITE BLOOD COUNT 8.3 K/uL (4.1-10.2)
[2017-07-02 06:30] LABS: CHLORIDE 105 MEQ/L (99-109); CREATININE 1.7 MG/DL (0.6-1.3); GFR ESTIMATE (CALCULATED) 32 mL/min/; GLUCOSE 146 mg/dL (70-99); POTASSIUM 4.7 MEQ/L (3.7-5.4); SODIUM 139 MEQ/L (136-147); UREA NITROGEN (BUN) 20 mg/dL (9-23); VANCOMYCIN, TROUGH 17.1 MCG/ML (10-20)
[2017-07-02 07:12] VITALS: BP 142/71
[2017-07-02 15:05] VITALS: BP 157/70
[2017-07-03 00:27] VITALS: BP 138/66
[2017-07-03 07:03] LABS: BASOPHIL (%) 0.5 % (0-1); EOSINOPHIL (%) 14.7 % (0-5); EOSINOPHIL COUNT 1.1 K/uL (0-0.3); HEMATOCRIT 29.8 % (36.0-46.0); HEMOGLOBIN 9.1 G/DL (11.9-15.5); IMMATURE GRANULOCYTE (%) 0.8 % (0.0-0.7); MCH 25.4 PG (29.0-34.0); MCHC 30.5 G/DL (30.0-36.0); MCV 83.2 FL (83-99); MONOCYTE COUNT 0.7 K/uL (0-0.8); NEUTROPHIL COUNT 3.6 K/uL (1.8-6.4); PLATELET COUNT 346 K/uL (156-360); RBC DIS.WIDTH-CV 14.6 % (11.8-14.6); RED BLOOD COUNT 3.58 M/uL (3.80-5.20); WHITE BLOOD COUNT 7.4 K/uL (4.1-10.2)
[2017-07-03 07:49] VITALS: BP 170/77
[2017-07-03 08:07] LABS: CHLORIDE 104 MEQ/L (99-109); CREATININE 1.5 MG/DL (0.6-1.3); GFR ESTIMATE (CALCULATED) 37 mL/min/; GLUCOSE 130 mg/dL (70-99); MAGNESIUM 1.5 mg/dl (1.3-2.7); POTASSIUM 4.5 MEQ/L (3.7-5.4); SODIUM 138 MEQ/L (136-147); UREA NITROGEN (BUN) 20 mg/dL (9-23)
[2017-07-03 16:10] VITALS: BP 180/84
[2017-07-03 20:02] VITALS: BP 170/82
[2017-07-03 22:12] VITALS: BP 152/60
[2017-07-04 00:45] VITALS: BP 165/75
[2017-07-04 06:30] LABS: HEMATOCRIT 30.1 % (36.0-46.0); HEMOGLOBIN 9.6 G/DL (11.9-15.5); MCH 26.4 PG (29.0-34.0); MCHC 31.9 G/DL (30.0-36.0); MCV 82.9 FL (83-99); PLATELET COUNT 346 K/uL (156-360); RBC DIS.WIDTH-CV 14.8 % (11.8-14.6); RBC DIS.WIDTH-SD 44.7 % (39-53); RED BLOOD COUNT 3.63 M/uL (3.80-5.20); WHITE BLOOD COUNT 9.1 K/uL (4.1-10.2)
[2017-07-04 06:58] LABS: CHLORIDE 105 MEQ/L (99-109); CREATININE 1.4 MG/DL (0.6-1.3); GFR ESTIMATE (CALCULATED) 40 mL/min/; GLUCOSE 149 mg/dL (70-99); POTASSIUM 4.6 MEQ/L (3.7-5.4); SODIUM 140 MEQ/L (136-147); UREA NITROGEN (BUN) 18 mg/dL (9-23)
[2017-07-04 07:57] VITALS: BP 142/74
[2017-07-04 16:35] VITALS: BP 154/78
[2017-07-05] VITALS: BP 154/73
[2017-07-05 06:54] LABS: HEMATOCRIT 29.5 % (36.0-46.0); HEMOGLOBIN 8.9 G/DL (11.9-15.5); MCH 25.3 PG (29.0-34.0); MCHC 30.2 G/DL (30.0-36.0); MCV 83.8 FL (83-99); PLATELET COUNT 355 K/uL (156-360); RBC DIS.WIDTH-CV 14.7 % (11.8-14.6); RBC DIS.WIDTH-SD 44.9 % (39-53); RED BLOOD COUNT 3.52 M/uL (3.80-5.20)
[2017-07-05 07:13] LABS: CHLORIDE 101 MEQ/L (99-109); CREATININE 1.6 MG/DL (0.6-1.3); GFR ESTIMATE (CALCULATED) 34 mL/min/; POTASSIUM 4.4 MEQ/L (3.7-5.4); SODIUM 136 MEQ/L (136-147); UREA NITROGEN (BUN) 20 mg/dL (9-23)
[2017-07-05 07:16] VITALS: BP 167/81
[2017-07-05 07:17] LABS: GLUCOSE 251 mg/dL (70-99)
[2017-07-05 15:23] VITALS: BP 173/71
[2017-07-05 23:44] VITALS: BP 140/80
[2017-07-06 07:30] VITALS: BP 158/71
[2017-07-06 15:21] VITALS: BP 190/78
[2017-07-06 23:50] VITALS: BP 180/76
[2017-07-07] VITALS: BP 164/78
[2017-07-07 07:20] VITALS: BP 178/82
[2017-07-07 15:29] VITALS: BP 176/75
[2017-07-08] VITALS: BP 168/78
[2017-07-08 06:25] LABS: BASOPHIL (%) 1.5 % (0-1); BASOPHIL COUNT 0.1 K/uL (0-0.1); EOSINOPHIL (%) 14.3 % (0-5); EOSINOPHIL COUNT 1.1 K/uL (0-0.3); HEMATOCRIT 30.9 % (36.0-46.0); HEMOGLOBIN 9.4 G/DL (11.9-15.5); IMMATURE GRANULOCYTE (%) 0.7 % (0.0-0.7); LYMPHOCYTE (%) 38.1 % (15-42); LYMPHOCYTE COUNT 2.8 K/uL (1.0-2.8); MCH 25.6 PG (29.0-34.0); MCHC 30.4 G/DL (30.0-36.0); MCV 84.2 FL (83-99); MONOCYTE (%) 9.4 % (3-12); MONOCYTE COUNT 0.7 K/uL (0-0.8); NEUTROPHIL COUNT 2.6 K/uL (1.8-6.4); PLATELET COUNT 371 K/uL (156-360); RBC DIS.WIDTH-CV 14.8 % (11.8-14.6); RBC DIS.WIDTH-SD 45.3 % (39-53); RED BLOOD COUNT 3.67 M/uL (3.80-5.20); WHITE BLOOD COUNT 7.3 K/uL (4.1-10.2)
[2017-07-08 07:01] LABS: CHLORIDE 102 MEQ/L (99-109); CREATININE 1.6 MG/DL (0.6-1.3); GFR ESTIMATE (CALCULATED) 34 mL/min/; GLUCOSE 158 mg/dL (70-99); MAGNESIUM 1.7 mg/dl (1.3-2.7); POTASSIUM 4.4 MEQ/L (3.7-5.4); SODIUM 140 MEQ/L (136-147); UREA NITROGEN (BUN) 16 mg/dL (9-23)
[2017-07-08 08:26] VITALS: BP 192/95
[2017-07-08 16:19] VITALS: BP 166/77
[2017-07-08 21:30] VITALS: BP 186/89
[2017-07-09 08:07] VITALS: BP 185/84
[2017-07-09 16:53] VITALS: BP 173/80
[2017-07-09 23:45] VITALS: BP 140/69
[2017-07-10 08:00] VITALS: BP 143/67
[2017-07-10 16:26] VITALS: BP 136/64
[2017-07-11 00:16] VITALS: BP 160/84
[2017-07-11 07:45] VITALS: BP 168/79
[2017-07-11] MEDS ORDERED: AMLODIPINE BESY10 MG PO (11:29)
[2017-07-11] MEDS ORDERED: LOPRESSOR25 MG PO (11:29)
[2017-07-11] MEDS ORDERED: DOCUSATE SODIU100 MG PO (11:30)
[2017-07-11] MEDS ORDERED: SENNA LAX8.6 MG PO (11:30)
[2017-07-11] MEDS ORDERED: FAMOTIDINE20 MG PO (11:30)
[2017-07-11] MEDS ORDERED: BISACODYL5 MG PO (11:30)
[2017-07-11] MEDS ORDERED: NOVOLOG 10100 UNITS/ SC (11:32)
== END 2017-07-11 17:19 | DRG 673 ==
LOC: EME 19:39 → 5SOUTH 06-24 02:18 → 2EASTP 06-24 02:18 → EDOF 06-24 02:18 → ENRESERV 06-24 02:21 → 2EASTP 06-24 04:19 → ENRESERV 06-26 02:34 → 5SOUTH 06-26 03:43 → ENPENDDIS 07-11 14:15 → 5SOUTH 07-11 17:19
PROVIDERS: Emergency Medicine; Hospitalist; Internal Medicine; Physician Assistant; Physician Assistant Medical; Physician Assistant Surgical
DX: N17.9 Acute kidney failure, unspecified (principal); R65.11 Systemic inflammatory response syndrome (SIRS) of non-infectious origin with acute organ dysfunction; L03.116 Cellulitis of left lower limb; L03.115 Cellulitis of right lower limb; N39.0 Urinary tract infection, site not specified; E11.52 Type 2 diabetes mellitus with diabetic peripheral angiopathy with gangrene; L97.821 Non-pressure chronic ulcer of other part of left lower leg limited to breakdown of skin; L97.811 Non-pressure chronic ulcer of other part of right lower leg limited to breakdown of skin; I70.263 Atherosclerosis of native arteries of extremities with gangrene, bilateral legs; N18.3 Chronic kidney disease, stage 3 (moderate); B85.0 Pediculosis due to Pediculus humanus capitis; E66.9 Obesity, unspecified; E87.5 Hyperkalemia; K59.00 Constipation, unspecified; I87.2 Venous insufficiency (chronic) (peripheral); D63.1 Anemia in chronic kidney disease; E11.22 Type 2 diabetes mellitus with diabetic chronic kidney disease; B36.9 Superficial mycosis, unspecified; I89.0 Lymphedema, not elsewhere classified; L85.9 Epidermal thickening, unspecified; B35.1 Tinea unguium; L60.2 Onychogryphosis; L03.032 Cellulitis of left toe; L03.031 Cellulitis of right toe; I12.9 Hypertensive chronic kidney disease with stage 1 through stage 4 chronic kidney disease, or unspecified chronic kidney disease; E11.65 Type 2 diabetes mellitus with hyperglycemia; L89.620 Pressure ulcer of left heel, unstageable; L89.610 Pressure ulcer of right heel, unstageable; L89.320 Pressure ulcer of left buttock, unstageable; L89.310 Pressure ulcer of right buttock, unstageable; L89.302 Pressure ulcer of unspecified buttock, stage 2; L97.521 Non-pressure chronic ulcer of other part of left foot limited to breakdown of skin; E11.40 Type 2 diabetes mellitus with diabetic neuropathy, unspecified; E11.649 Type 2 diabetes mellitus with hypoglycemia without coma; E11.622 Type 2 diabetes mellitus with other skin ulcer; E78.5 Hyperlipidemia, unspecified; Z16.24 Resistance to multiple antibiotics; I34.0 Nonrheumatic mitral (valve) insufficiency; I27.20 Pulmonary hypertension, unspecified; I36.1 Nonrheumatic tricuspid (valve) insufficiency; L89.892 Pressure ulcer of other site, stage 2; B96.5 Pseudomonas (aeruginosa) (mallei) (pseudomallei) as the cause of diseases classified elsewhere; Z68.37 Body mass index [BMI] 37.0-37.9, adult; Z79.01 Long term (current) use of anticoagulants; Z79.4 Long term (current) use of insulin; Z87.891 Personal history of nicotine dependence; Z88.5 Allergy status to narcotic agent; Z86.718 Personal history of other venous thrombosis and embolism; Z86.14 Personal history of Methicillin resistant Staphylococcus aureus infection; Z82.49 Family history of ischemic heart disease and other diseases of the circulatory system; Z83.3 Family history of diabetes mellitus
CPT/HCPCS: 80048; 80048 91; 80053; 80202; 81003; 82948; 83605; 83690; 83735; 84132 91; 85025; 85027; 87040; 87070; 87075; 87077; 87086; 87147; 87186; 87205; 93005; 93306; 93971; 94799; 99281; 99285; A6260; C1760; C1769; C1894; J0692; J0780; J1644; J1650; J1815; J2250; J2405; J2543; J3010; J3370; J3475; J7030; J7050; J7120; S0020; S0028

== ENCOUNTER 2017-07-23 17:42 | Inpatient (IN) | payer OTHER ==
[~2017-07-23] VITALS: Ht 172.7 cm; Wt 117.2 kg
[~2017-07-23 17:42] MED LIST changes: +AMARYL2 MG PO; +AMLODIPINE BESY10 MG PO; +FAMOTIDINE20 MG PO; +NOVOLOG 10100 UNITS/ SC; +SENNA LAX8.6 MG PO
[2017-07-23 19:20] LABS: BASOPHIL (%) 0.4 % (0-1); BASOPHIL COUNT 0.1 K/uL (0-0.1); EOSINOPHIL (%) 2.7 % (0-5); EOSINOPHIL COUNT 0.5 K/uL (0-0.3); HEMATOCRIT 39.2 % (36.0-46.0); IMMATURE GRANULOCYTE (%) 1.7 % (0.0-0.7); LYMPHOCYTE (%) 17.4 % (15-42); MCH 25.8 PG (29.0-34.0); MCHC 32.1 G/DL (30.0-36.0); MONOCYTE (%) 3.7 % (3-12); MONOCYTE COUNT 0.7 K/uL (0-0.8); NEUTROPHIL (%) 74.1 % (45-76); NEUTROPHIL COUNT 12.9 K/uL (1.8-6.4); RBC DIS.WIDTH-CV 14.7 % (11.8-14.6); RBC DIS.WIDTH-SD 42.6 % (39-53); WHITE BLOOD COUNT 17.3 K/uL (4.1-10.2)
[2017-07-23 19:24] LABS: CHLORIDE 90 mEq/L (99-109); POTASSIUM 5.4 mEq/L (3.7-5.4)
[2017-07-23 19:25] LABS: SODIUM 128 mEq/L (136-147)
[2017-07-23 19:27] LABS: GLUCOSE 323 mg/dL (70-99); TOTAL PROTEIN 7.6 g/dL (6.4-8.3)
[2017-07-23 19:29] LABS: TOTAL BILIRUBIN 0.4 mg/dL (0.0-1.0)
[2017-07-23 19:30] LABS: ALKALINE PHOSPHATASE 171 IU/L (3-129); CREATININE 4.3 mg/dL (0.6-1.3); GFR ESTIMATE (CALCULATED) 11 mL/min/
[2017-07-23 19:32] LABS: AST (GOT) 12 IU/L (2-34); UREA NITROGEN (BUN) 58 mg/dL (9-23)
[2017-07-23 19:33] LABS: ALT (GPT) 14 IU/L (3-49)
[2017-07-23 20:16] LABS: APPEARANCE CLOUDY ((CLEAR)); BILIRUBIN NEGATIVE; BLOOD SMALL; GLUCOSE (STRIP) 50; KETONES NEGATIVE; LEUKOCYTES LARGE; NITRITE NEGATIVE; PROTEIN (STRIP) 100; SPECIFIC GRAVITY 1.016 (1.000-1.030)
[2017-07-23 20:25] LABS: COLOR YELLOW ((YELLOW))
[2017-07-23 20:34] LABS: HEMOGLOBIN 12.6 G/DL (11.9-15.5); MCV 80.2 FL (83-99); PLATELET COUNT 587 K/uL (156-360); RED BLOOD COUNT 4.89 M/uL (3.80-5.20)
[2017-07-23 20:43] LABS: RED BLOOD CELLS TNTC /HPF (0-5)
[2017-07-23] MEDS ORDERED: ZOFRAN4 MG PO (23:06)
[2017-07-23] MEDS ORDERED: AMLODIPINE BESY10 MG PO (23:08)
[2017-07-24 01:56] VITALS: BP 140/65
[2017-07-24 04:10] VITALS: BP 106/53
[2017-07-24 06:09] LABS: HEMATOCRIT 34.6 % (36.0-46.0); HEMOGLOBIN 11.1 G/DL (11.9-15.5); MCH 25.5 PG (29.0-34.0); MCHC 32.1 G/DL (30.0-36.0); MCV 79.4 FL (83-99); PLATELET COUNT 544 K/uL (156-360); RBC DIS.WIDTH-CV 14.6 % (11.8-14.6); RBC DIS.WIDTH-SD 42.5 % (39-53); RED BLOOD COUNT 4.36 M/uL (3.80-5.20); WHITE BLOOD COUNT 16.2 K/uL (4.1-10.2)
[2017-07-24 06:34] LABS: CHLORIDE 97 MEQ/L (99-109); GLUCOSE 178 mg/dL (70-99); POTASSIUM 5.3 MEQ/L (3.7-5.4); SODIUM 131 MEQ/L (136-147); UREA NITROGEN (BUN) 55 mg/dL (9-23)
[2017-07-24 06:37] LABS: CREATININE 3.3 MG/DL (0.6-1.3); GFR ESTIMATE (CALCULATED) 15 mL/min/
[2017-07-24 07:27] VITALS: BP 115/55
[2017-07-24 11:18] VITALS: BP 125/60
[2017-07-24 16:34] VITALS: BP 109/60
[2017-07-24 23:23] VITALS: BP 116/58
[2017-07-25 04:29] VITALS: BP 113/56
[2017-07-25 06:35] LABS: ALBUMIN 1.9 G/DL (3.2-4.8); CHLORIDE 101 MEQ/L (99-109); GFR ESTIMATE (CALCULATED) 21 mL/min/; GLUCOSE 155 mg/dL (70-99); PHOSPHORUS 4.4 mg/dL (2.5-4.9); POTASSIUM 4.7 MEQ/L (3.7-5.4); SODIUM 135 MEQ/L (136-147); UREA NITROGEN (BUN) 42 mg/dL (9-23)
[2017-07-25 06:38] LABS: CREATININE 2.4 MG/DL (0.6-1.3)
[2017-07-25 09:39] VITALS: BP 112/56
[2017-07-25 11:07] LABS: BASOPHIL (%) 0.6 % (0-1); BASOPHIL COUNT 0.1 K/uL (0-0.1); EOSINOPHIL (%) 5.1 % (0-5); EOSINOPHIL COUNT 0.5 K/uL (0-0.3); HEMATOCRIT 33.4 % (36.0-46.0); HEMOGLOBIN 10.5 G/DL (11.9-15.5); IMMATURE GRANULOCYTE (%) 1.6 % (0.0-0.7); LYMPHOCYTE (%) 23.4 % (15-42); LYMPHOCYTE COUNT 2.5 K/uL (1.0-2.8); MCH 25.3 PG (29.0-34.0); MCHC 31.4 G/DL (30.0-36.0); MCV 80.5 FL (83-99); MONOCYTE (%) 4.6 % (3-12); MONOCYTE COUNT 0.5 K/uL (0-0.8); NEUTROPHIL (%) 64.7 % (45-76); NEUTROPHIL COUNT 6.9 K/uL (1.8-6.4); PLATELET COUNT 481 K/uL (156-360); RBC DIS.WIDTH-SD 43.7 % (39-53); RED BLOOD COUNT 4.15 M/uL (3.80-5.20); WHITE BLOOD COUNT 10.6 K/uL (4.1-10.2)
[2017-07-25 12:44] VITALS: BP 118/60
[2017-07-25 16:37] VITALS: BP 109/59
[2017-07-25 19:00] VITALS: BP 129/69
[2017-07-25 21:45] VITALS: BP 104/56
[2017-07-26 00:55] VITALS: BP 141/76
[2017-07-26 04:37] VITALS: BP 119/57
[2017-07-26 06:49] LABS: HEMATOCRIT 33.6 % (36.0-46.0); HEMOGLOBIN 10.6 G/DL (11.9-15.5); MCH 25.4 PG (29.0-34.0); MCHC 31.5 G/DL (30.0-36.0); MCV 80.4 FL (83-99); PLATELET COUNT 459 K/uL (156-360); RBC DIS.WIDTH-SD 43.4 % (39-53); RED BLOOD COUNT 4.18 M/uL (3.80-5.20); WHITE BLOOD COUNT 10.1 K/uL (4.1-10.2)
[2017-07-26 07:07] LABS: CHLORIDE 102 MEQ/L (99-109); GFR ESTIMATE (CALCULATED) 28 mL/min/; GLUCOSE 156 mg/dL (70-99); PHOSPHORUS 3.3 mg/dL (2.5-4.9); POTASSIUM 4.9 MEQ/L (3.7-5.4); SODIUM 136 MEQ/L (136-147); UREA NITROGEN (BUN) 32 mg/dL (9-23)
[2017-07-26 07:08] LABS: CREATININE 1.9 MG/DL (0.6-1.3)
[2017-07-26 07:10] VITALS: BP 117/56
[2017-07-26 07:30] VITALS: BP 133/64
[2017-07-26 11:20] VITALS: BP 123/59
[2017-07-26] MEDS ORDERED: NIZORAL 2% CREA15 GM TP (14:52)
[2017-07-26] MEDS ORDERED: LINEZOLID600 MG PO (14:52)
[2017-07-26] MEDS ORDERED: FLUCONAZOLE100 MG PO (14:52)
[2017-07-26 15:20] VITALS: BP 123/73
[2017-07-27 00:10] VITALS: BP 142/90
[2017-07-27 06:50] LABS: ALBUMIN 2.3 G/DL (3.2-4.8); CHLORIDE 102 MEQ/L (99-109); CREATININE 1.7 MG/DL (0.6-1.3); GFR ESTIMATE (CALCULATED) 32 mL/min/; GLUCOSE 202 mg/dL (70-99); PHOSPHORUS 2.7 mg/dL (2.5-4.9); POTASSIUM 4.8 MEQ/L (3.7-5.4); SODIUM 138 MEQ/L (136-147); UREA NITROGEN (BUN) 24 mg/dL (9-23)
[2017-07-27 09:35] VITALS: BP 141/66
[2017-07-27 15:05] VITALS: BP 143/80
[2017-07-27 22:52] VITALS: BP 114/55
[2017-07-28 07:20] VITALS: BP 142/64
== END 2017-07-28 14:51 | disposition home health service (06) | DRG 683 ==
LOC: EME 17:42 → EDOF 21:08 → 5EAST 21:08 → ENRESERV 21:12 → EDOF 07-24 00:50 → 5EAST 07-24 00:50
PROVIDERS: Emergency Medicine; Family Medicine; Hospitalist; Internal Medicine Nephrology
DX: N17.9 Acute kidney failure, unspecified (principal); L03.312 Cellulitis of back [any part except buttock and flank]; N18.3 Chronic kidney disease, stage 3 (moderate); E11.65 Type 2 diabetes mellitus with hyperglycemia; E66.01 Morbid (severe) obesity due to excess calories; Z68.37 Body mass index [BMI] 37.0-37.9, adult; E87.1 Hypo-osmolality and hyponatremia; L89.620 Pressure ulcer of left heel, unstageable; L89.610 Pressure ulcer of right heel, unstageable; L97.929 Non-pressure chronic ulcer of unspecified part of left lower leg with unspecified severity; L97.919 Non-pressure chronic ulcer of unspecified part of right lower leg with unspecified severity; L89.322 Pressure ulcer of left buttock, stage 2; L89.312 Pressure ulcer of right buttock, stage 2; B35.6 Tinea cruris; Z86.718 Personal history of other venous thrombosis and embolism; E87.5 Hyperkalemia; I87.8 Other specified disorders of veins; N30.91 Cystitis, unspecified with hematuria; E87.0 Hyperosmolality and hypernatremia; I12.9 Hypertensive chronic kidney disease with stage 1 through stage 4 chronic kidney disease, or unspecified chronic kidney disease; Z79.01 Long term (current) use of anticoagulants; Z87.891 Personal history of nicotine dependence; E86.0 Dehydration
CPT/HCPCS: 76770; 80048; 80048 91; 80053; 80069; 81003; 82436; 82948; 84133; 84300; 85025; 85027; 99281; 99285; A6260; J0696; J1644; J1815; J1956; J2405; J2543; J7030; J7040; J7050; J7120; P9047

== ENCOUNTER 2017-08-13 20:23 | Inpatient (IN) | payer OTHER ==
[~2017-08-13] VITALS: Ht 170.2 cm; Wt 113.7 kg
[~2017-08-13 20:23] MED LIST changes: +FLUCONAZOLE100 MG PO; +LINEZOLID600 MG PO; +NIZORAL 2% CREA15 GM TP; +ZOFRAN4 MG PO
[2017-08-13 20:51] LABS: HEMOGLOBIN 11.7 G/DL (11.9-15.5); MCH 25.8 PG (29.0-34.0); MCHC 32.5 G/DL (30.0-36.0); MCV 79.3 FL (83-99); PLATELET COUNT 517 K/uL (156-360); RBC DIS.WIDTH-CV 15.9 % (11.8-14.6); RBC DIS.WIDTH-SD 45.8 % (39-53); RED BLOOD COUNT 4.54 M/uL (3.80-5.20); WHITE BLOOD COUNT 13.8 K/uL (4.1-10.2)
[2017-08-13 21:00] LABS: ALBUMIN 3.1 g/dL (3.2-4.8); CHLORIDE 98 mEq/L (99-109); POTASSIUM 5.9 mEq/L (3.7-5.4); SODIUM 130 mEq/L (136-147)
[2017-08-13 21:04] LABS: TOTAL BILIRUBIN 0.2 mg/dL (0.0-1.0)
[2017-08-13 21:06] LABS: ALKALINE PHOSPHATASE 149 IU/L (3-129); CREATININE 3.5 mg/dL (0.6-1.3); GFR ESTIMATE (CALCULATED) 14 mL/min/
[2017-08-13 21:07] LABS: UREA NITROGEN (BUN) 64 mg/dL (9-23)
[2017-08-13 21:08] LABS: AST (GOT) 16 IU/L (2-34)
[2017-08-13 21:09] LABS: ALT (GPT) 14 IU/L (3-49)
[2017-08-13 21:14] LABS: GLUCOSE 422 mg/dL (70-99)
[2017-08-13 23:24] LABS: CARBON DIOXIDE (BICARBONATE) 19.3 MEQ/L (20-31)
[2017-08-13 23:37] LABS: TROP-I INTERPRETATION NEGATIVE; TROPONIN-I < 0.01 ng/mL (0.0-0.30)
[2017-08-14 00:20] LABS: APPEARANCE CLOUDY ((CLEAR)); BILIRUBIN NEGATIVE; BLOOD SMALL; COLOR YELLOW ((YELLOW)); GLUCOSE (STRIP) NEGATIVE; KETONES NEGATIVE; LEUKOCYTES MODERATE; NITRITE NEGATIVE; PROTEIN (STRIP) NEGATIVE; SPECIFIC GRAVITY 1.016 (1.000-1.030); UROBILINOGEN 0.2 MG/DL (0.2-1.0)
[2017-08-14 00:24] LABS: MAGNESIUM 2.5 mg/dL (1.3-2.7)
[2017-08-14 00:30] LABS: CHLORIDE 98 mEq/L (99-109); POTASSIUM 4.9 mEq/L (3.7-5.4); SODIUM 129 mEq/L (136-147)
[2017-08-14 00:32] LABS: GLUCOSE 376 mg/dL (70-99)
[2017-08-14 00:36] LABS: CREATININE 3.3 mg/dL (0.6-1.3); GFR ESTIMATE (CALCULATED) 15 mL/min/; PHOSPHORUS 5.4 mg/dL (2.5-4.9)
[2017-08-14 00:37] LABS: UREA NITROGEN (BUN) 62 mg/dL (9-23)
[2017-08-14 00:48] LABS: RED BLOOD CELLS 0-5 /HPF (0-5); WHITE BLOOD CELLS 15-20 /HPF (0-5)
[2017-08-14 00:49] LABS: BACTERIA 3+ /HPF; EPITHELIAL CELLS 1+ /HPF; MUCUS 1+ /LPF; UCUL ADDED? YES
[2017-08-14] MEDS ORDERED: LISINOPRIL-HCT1 EAC3 PO (01:20)
[2017-08-14 02:03] LABS: CARBON DIOXIDE (BICARBONATE) 19.8 MEQ/L (20-31)
[2017-08-14 02:22] LABS: BASE EXCESS -9.1 mEq/L (-3 to +3); CARBOXY HGB 2.7 % (0-5); COMMENTS - BLOOD GASES C+A+; DEVICE NC; METHEMOGLOBIN 1.2 % (0-1.5); O2 FLOW 3 L/MIN; PCO2 31 mm Hg (35-45); PO2 138 mm Hg (80-100); SITE RR; pH 7.32 (7.35-7.45)
[2017-08-14 03:43] LABS: CHLORIDE 105 mEq/L (99-109); SODIUM 134 mEq/L (136-147)
[2017-08-14 03:48] LABS: CREATININE 2.9 mg/dL (0.6-1.3); GFR ESTIMATE (CALCULATED) 17 mL/min/; PHOSPHORUS 3.9 mg/dL (2.5-4.9)
[2017-08-14 03:49] LABS: UREA NITROGEN (BUN) 59 mg/dL (9-23)
[2017-08-14 03:50] LABS: GLUCOSE 53 mg/dL (70-99); POTASSIUM 3.8 mEq/L (3.7-5.4)
[2017-08-14 05:21] VITALS: BP 132/61
[2017-08-14 07:16] VITALS: BP 115/53
[2017-08-14 08:29] LABS: CHLORIDE 105 MEQ/L (99-109); CREATININE 2.6 MG/DL (0.6-1.3); GFR ESTIMATE (CALCULATED) 19 mL/min/; SODIUM 132 MEQ/L (136-147); UREA NITROGEN (BUN) 50 mg/dL (9-23)
[2017-08-14 08:41] LABS: GLUCOSE 111 mg/dL (70-99); PHOSPHORUS 5.1 mg/dL (2.5-4.9); POTASSIUM 4.8 MEQ/L (3.7-5.4)
[2017-08-14 09:13] LABS: HEMOGLOBIN A1c (GLYCOHEMOGLOB) 9.6 % (Below 5.7)
[2017-08-14 11:08] VITALS: BP 92/55
[2017-08-14 15:27] VITALS: BP 101/51
[2017-08-14 19:24] VITALS: BP 99/50
[2017-08-14 23:55] VITALS: BP 101/54
[2017-08-15 04:03] VITALS: BP 128/60
[2017-08-15 06:53] LABS: HEMATOCRIT 30.6 % (36.0-46.0); HEMOGLOBIN 9.5 G/DL (11.9-15.5); MCH 25.3 PG (29.0-34.0); MCV 81.4 FL (83-99); PLATELET COUNT 469 K/uL (156-360); RBC DIS.WIDTH-CV 16.2 % (11.8-14.6); RBC DIS.WIDTH-SD 47.8 % (39-53); RED BLOOD COUNT 3.76 M/uL (3.80-5.20)
[2017-08-15 07:07] LABS: CHLORIDE 106 MEQ/L (99-109); GFR ESTIMATE (CALCULATED) 26 mL/min/; MAGNESIUM 1.7 mg/dl (1.3-2.7); POTASSIUM 4.5 MEQ/L (3.7-5.4); SODIUM 135 MEQ/L (136-147); UREA NITROGEN (BUN) 41 mg/dL (9-23)
[2017-08-15 07:09] LABS: GLUCOSE 78 mg/dL (70-99)
[2017-08-15 07:58] VITALS: BP 110/58
[2017-08-15 11:44] VITALS: BP 108/58
[2017-08-15 16:10] VITALS: BP 120/54
[2017-08-15 20:16] VITALS: BP 120/68
[2017-08-16] VITALS (7 sets, daily range): BP systolic 107–138; BP diastolic 58–77
[2017-08-16 07:22] LABS: ALBUMIN 1.8 G/DL (3.2-4.8); CHLORIDE 109 MEQ/L (99-109); CREATININE 1.6 MG/DL (0.6-1.3); GFR ESTIMATE (CALCULATED) 34 mL/min/; GLUCOSE 62 mg/dL (70-99); PHOSPHORUS 3.4 mg/dL (2.5-4.9); POTASSIUM 4.7 MEQ/L (3.7-5.4); SODIUM 138 MEQ/L (136-147); UREA NITROGEN (BUN) 32 mg/dL (9-23)
[2017-08-16 16:38] LABS: HEMATOCRIT 34.1 % (36.0-46.0); HEMOGLOBIN 11.2 G/DL (11.9-15.5); MCH 27.6 PG (29.0-34.0); MCHC 32.8 G/DL (30.0-36.0); PLATELET COUNT 358 K/uL (156-360); RBC DIS.WIDTH-CV 15.5 % (11.8-14.6); RBC DIS.WIDTH-SD 47.3 % (39-53); RED BLOOD COUNT 4.06 M/uL (3.80-5.20); WHITE BLOOD COUNT 10.1 K/uL (4.1-10.2)
[2017-08-17 03:45] VITALS: BP 121/65
[2017-08-17 06:06] LABS: BASOPHIL (%) 0.3 % (0-1); BASOPHIL COUNT 0.1 K/uL (0-0.1); EOSINOPHIL (%) 0.8 % (0-5); EOSINOPHIL COUNT 0.2 K/uL (0-0.3); HEMATOCRIT 33.6 % (36.0-46.0); HEMOGLOBIN 10.9 G/DL (11.9-15.5); IMMATURE GRANULOCYTE (%) 1.1 % (0.0-0.7); LYMPHOCYTE (%) 11.5 % (15-42); LYMPHOCYTE COUNT 2.3 K/uL (1.0-2.8); MCHC 32.4 G/DL (30.0-36.0); MCV 83.2 FL (83-99); MONOCYTE (%) 4.3 % (3-12); MONOCYTE COUNT 0.9 K/uL (0-0.8); NEUTROPHIL COUNT 16.7 K/uL (1.8-6.4); PLATELET COUNT 406 K/uL (156-360); RBC DIS.WIDTH-CV 15.7 % (11.8-14.6); RBC DIS.WIDTH-SD 47.6 % (39-53); RED BLOOD COUNT 4.04 M/uL (3.80-5.20); WHITE BLOOD COUNT 20.4 K/uL (4.1-10.2)
[2017-08-17 06:28] LABS: ALBUMIN 1.8 G/DL (3.2-4.8); CHLORIDE 110 MEQ/L (99-109); CREATININE 1.5 MG/DL (0.6-1.3); GFR ESTIMATE (CALCULATED) 37 mL/min/; GLUCOSE 248 mg/dL (70-99); MAGNESIUM 1.5 mg/dl (1.3-2.7); POTASSIUM 5.4 MEQ/L (3.7-5.4); SODIUM 137 MEQ/L (136-147); UREA NITROGEN (BUN) 28 mg/dL (9-23)
[2017-08-17 07:38] VITALS: BP 119/68
[2017-08-17 12:01] VITALS: BP 120/55
[2017-08-17 16:06] VITALS: BP 137/72
[2017-08-17 19:15] VITALS: BP 125/69
[2017-08-17 23:39] VITALS: BP 129/70
[2017-08-18 03:35] VITALS: BP 124/68
[2017-08-18 06:39] LABS: HEMATOCRIT 30.1 % (36.0-46.0); HEMOGLOBIN 10.1 G/DL (11.9-15.5); MCH 27.8 PG (29.0-34.0); MCHC 33.6 G/DL (30.0-36.0); MCV 82.9 FL (83-99); PLATELET COUNT 380 K/uL (156-360); RBC DIS.WIDTH-CV 16.2 % (11.8-14.6); RBC DIS.WIDTH-SD 48.9 % (39-53); RED BLOOD COUNT 3.63 M/uL (3.80-5.20); WHITE BLOOD COUNT 19.2 K/uL (4.1-10.2)
[2017-08-18 06:48] LABS: ALBUMIN 1.6 G/DL (3.2-4.8); CHLORIDE 111 MEQ/L (99-109); CREATININE 1.4 MG/DL (0.6-1.3); GFR ESTIMATE (CALCULATED) 40 mL/min/; GLUCOSE 242 mg/dL (70-99); PHOSPHORUS 3.3 mg/dL (2.5-4.9); POTASSIUM 4.9 MEQ/L (3.7-5.4); SODIUM 138 MEQ/L (136-147); UREA NITROGEN (BUN) 22 mg/dL (9-23)
[2017-08-18 07:48] VITALS: BP 140/68
[2017-08-18 11:31] VITALS: BP 145/84
[2017-08-18 15:22] VITALS: BP 140/67
[2017-08-18 19:30] VITALS: BP 145/73
[2017-08-18 23:35] VITALS: BP 123/60
[2017-08-19 04:22] VITALS: BP 166/79
[2017-08-19 06:09] LABS: HEMATOCRIT 32.9 % (36.0-46.0); HEMOGLOBIN 10.7 G/DL (11.9-15.5); MCH 27.2 PG (29.0-34.0); MCHC 32.5 G/DL (30.0-36.0); MCV 83.5 FL (83-99); PLATELET COUNT 379 K/uL (156-360); RBC DIS.WIDTH-CV 16.5 % (11.8-14.6); RBC DIS.WIDTH-SD 50.4 % (39-53); RED BLOOD COUNT 3.94 M/uL (3.80-5.20); WHITE BLOOD COUNT 16.6 K/uL (4.1-10.2)
[2017-08-19 06:36] LABS: CHLORIDE 108 MEQ/L (99-109); CREATININE 1.2 MG/DL (0.6-1.3); GFR ESTIMATE (CALCULATED) 47 mL/min/; GLUCOSE 129 mg/dL (70-99); POTASSIUM 4.9 MEQ/L (3.7-5.4); SODIUM 138 MEQ/L (136-147); UREA NITROGEN (BUN) 20 mg/dL (9-23)
[2017-08-19 08:27] VITALS: BP 157/81
[2017-08-19 11:33] VITALS: BP 110/51
[2017-08-19 15:48] VITALS: BP 135/71
[2017-08-19 19:56] VITALS: BP 139/78
[2017-08-20] VITALS (7 sets, daily range): BP systolic 123–149; BP diastolic 60–85
[2017-08-20 06:41] LABS: HEMATOCRIT 27.3 % (36.0-46.0); MCH 27.4 PG (29.0-34.0); MCV 83.2 FL (83-99); PLATELET COUNT 357 K/uL (156-360); RBC DIS.WIDTH-CV 16.3 % (11.8-14.6); RBC DIS.WIDTH-SD 49.6 % (39-53); RED BLOOD COUNT 3.28 M/uL (3.80-5.20); WHITE BLOOD COUNT 13.5 K/uL (4.1-10.2)
[2017-08-20 07:05] LABS: CHLORIDE 106 MEQ/L (99-109); CREATININE 1.2 MG/DL (0.6-1.3); GFR ESTIMATE (CALCULATED) 47 mL/min/; GLUCOSE 140 mg/dL (70-99); POTASSIUM 4.4 MEQ/L (3.7-5.4); SODIUM 135 MEQ/L (136-147); UREA NITROGEN (BUN) 18 mg/dL (9-23)
[2017-08-21] VITALS (7 sets, daily range): BP systolic 135–171; BP diastolic 63–86
[2017-08-21 06:45] LABS: BASOPHIL (%) 0.6 % (0-1); BASOPHIL COUNT 0.1 K/uL (0-0.1); EOSINOPHIL (%) 7.3 % (0-5); EOSINOPHIL COUNT 0.8 K/uL (0-0.3); HEMATOCRIT 28.3 % (36.0-46.0); IMMATURE GRANULOCYTE (%) 1.9 % (0.0-0.7); LYMPHOCYTE (%) 24.1 % (15-42); LYMPHOCYTE COUNT 2.5 K/uL (1.0-2.8); MCH 26.5 PG (29.0-34.0); MCHC 31.8 G/DL (30.0-36.0); MCV 83.2 FL (83-99); MONOCYTE (%) 7.6 % (3-12); MONOCYTE COUNT 0.8 K/uL (0-0.8); NEUTROPHIL (%) 58.5 % (45-76); NEUTROPHIL COUNT 6.1 K/uL (1.8-6.4); PLATELET COUNT 372 K/uL (156-360); RBC DIS.WIDTH-SD 49.1 % (39-53); WHITE BLOOD COUNT 10.4 K/uL (4.1-10.2)
[2017-08-21 08:53] LABS: CHLORIDE 105 MEQ/L (99-109); GFR ESTIMATE (CALCULATED) 58 mL/min/; GLUCOSE 149 mg/dL (70-99); POTASSIUM 4.4 MEQ/L (3.7-5.4); SODIUM 136 MEQ/L (136-147); UREA NITROGEN (BUN) 21 mg/dL (9-23)
[2017-08-22 03:43] VITALS: BP 121/65
[2017-08-22 06:34] LABS: HEMATOCRIT 29.4 % (36.0-46.0); HEMOGLOBIN 9.6 G/DL (11.9-15.5); MCH 27.3 PG (29.0-34.0); MCHC 32.7 G/DL (30.0-36.0); MCV 83.5 FL (83-99); NRBC (%) 0.2 /100 WBC (0-0); PLATELET COUNT 389 K/uL (156-360); RBC DIS.WIDTH-CV 15.9 % (11.8-14.6); RBC DIS.WIDTH-SD 47.9 % (39-53); RED BLOOD COUNT 3.52 M/uL (3.80-5.20); WHITE BLOOD COUNT 9.6 K/uL (4.1-10.2)
[2017-08-22 07:07] LABS: CHLORIDE 103 MEQ/L (99-109); GFR ESTIMATE (CALCULATED) 58 mL/min/; GLUCOSE 182 mg/dL (70-99); POTASSIUM 4.3 MEQ/L (3.7-5.4); SODIUM 136 MEQ/L (136-147); UREA NITROGEN (BUN) 19 mg/dL (9-23)
[2017-08-22 08:14] VITALS: BP 120/82
[2017-08-22 11:12] VITALS: BP 138/80
[2017-08-22 16:03] VITALS: BP 180/87
[2017-08-22 20:01] VITALS: BP 159/83
[2017-08-22 23:46] VITALS: BP 158/81
[2017-08-23 07:25] VITALS: BP 142/70
[2017-08-23 10:56] VITALS: BP 122/78
[2017-08-23 12:08] VITALS: BP 151/79
[2017-08-23 16:50] VITALS: BP 142/77
[2017-08-23 19:42] VITALS: BP 149/73
[2017-08-23 23:13] VITALS: BP 139/69
[2017-08-24 03:51] VITALS: BP 142/65
[2017-08-24 05:59] LABS: HEMATOCRIT 28.2 % (36.0-46.0); HEMOGLOBIN 8.8 G/DL (11.9-15.5); MCH 26.3 PG (29.0-34.0); MCHC 31.2 G/DL (30.0-36.0); MCV 84.2 FL (83-99); PLATELET COUNT 382 K/uL (156-360); RBC DIS.WIDTH-CV 15.9 % (11.8-14.6); RBC DIS.WIDTH-SD 48.4 % (39-53); RED BLOOD COUNT 3.35 M/uL (3.80-5.20); WHITE BLOOD COUNT 10.8 K/uL (4.1-10.2)
[2017-08-24 07:26] VITALS: BP 132/63
[2017-08-24 08:33] LABS: CHLORIDE 104 mEq/L (99-109); POTASSIUM 4.7 mEq/L (3.7-5.4); SODIUM 135 mEq/L (136-147)
[2017-08-24 08:35] LABS: GLUCOSE 207 mg/dL (70-99)
[2017-08-24 08:39] LABS: GFR ESTIMATE (CALCULATED) 58 mL/min/
[2017-08-24 08:40] LABS: UREA NITROGEN (BUN) 22 mg/dL (9-23)
[2017-08-24 11:30] VITALS: BP 150/67
[2017-08-24 16:44] VITALS: BP 171/84
[2017-08-24 19:25] VITALS: BP 158/78
[2017-08-25] VITALS (7 sets, daily range): BP systolic 122–165; BP diastolic 58–77
[2017-08-25 06:22] LABS: HEMATOCRIT 27.6 % (36.0-46.0); HEMOGLOBIN 8.9 G/DL (11.9-15.5); MCH 27.1 PG (29.0-34.0); MCHC 32.2 G/DL (30.0-36.0); MCV 84.1 FL (83-99); PLATELET COUNT 378 K/uL (156-360); RBC DIS.WIDTH-CV 15.8 % (11.8-14.6); RBC DIS.WIDTH-SD 49.4 % (39-53); RED BLOOD COUNT 3.28 M/uL (3.80-5.20)
[2017-08-25 06:48] LABS: CHLORIDE 102 MEQ/L (99-109); CREATININE 1.1 MG/DL (0.6-1.3); GFR ESTIMATE (CALCULATED) 52 mL/min/; GLUCOSE 212 mg/dL (70-99); MAGNESIUM 1.3 mg/dl (1.3-2.7); POTASSIUM 4.5 MEQ/L (3.7-5.4); SODIUM 136 MEQ/L (136-147); UREA NITROGEN (BUN) 22 mg/dL (9-23)
[2017-08-26 06:49] LABS: HEMOGLOBIN 8.8 G/DL (11.9-15.5); MCH 26.3 PG (29.0-34.0); MCHC 31.4 G/DL (30.0-36.0); MCV 83.8 FL (83-99); PLATELET COUNT 435 K/uL (156-360); RBC DIS.WIDTH-CV 15.6 % (11.8-14.6); RBC DIS.WIDTH-SD 48.3 % (39-53); RED BLOOD COUNT 3.34 M/uL (3.80-5.20); WHITE BLOOD COUNT 9.3 K/uL (4.1-10.2)
[2017-08-26 07:10] VITALS: BP 137/66
[2017-08-26 07:11] LABS: CHLORIDE 102 MEQ/L (99-109); GFR ESTIMATE (CALCULATED) 58 mL/min/; GLUCOSE 183 mg/dL (70-99); POTASSIUM 4.7 MEQ/L (3.7-5.4); SODIUM 137 MEQ/L (136-147); UREA NITROGEN (BUN) 20 mg/dL (9-23)
[2017-08-26 15:15] VITALS: BP 139/69
[2017-08-26 21:30] VITALS: BP 147/71
[2017-08-26 23:55] VITALS: BP 148/70
[2017-08-27 06:18] LABS: BASOPHIL (%) 0.5 % (0-1); BASOPHIL COUNT 0.1 K/uL (0-0.1); EOSINOPHIL (%) 4.8 % (0-5); EOSINOPHIL COUNT 0.5 K/uL (0-0.3); HEMATOCRIT 27.2 % (36.0-46.0); HEMOGLOBIN 8.4 G/DL (11.9-15.5); IMMATURE GRANULOCYTE (%) 0.7 % (0.0-0.7); LYMPHOCYTE (%) 29.5 % (15-42); LYMPHOCYTE COUNT 2.8 K/uL (1.0-2.8); MCH 26.1 PG (29.0-34.0); MCHC 30.9 G/DL (30.0-36.0); MCV 84.5 FL (83-99); MONOCYTE (%) 7.5 % (3-12); MONOCYTE COUNT 0.7 K/uL (0-0.8); NEUTROPHIL COUNT 5.3 K/uL (1.8-6.4); PLATELET COUNT 446 K/uL (156-360); RBC DIS.WIDTH-CV 15.5 % (11.8-14.6); RBC DIS.WIDTH-SD 47.8 % (39-53); RED BLOOD COUNT 3.22 M/uL (3.80-5.20); WHITE BLOOD COUNT 9.4 K/uL (4.1-10.2)
[2017-08-27 07:16] LABS: CHLORIDE 101 MEQ/L (99-109); CREATININE 1.2 MG/DL (0.6-1.3); GFR ESTIMATE (CALCULATED) 47 mL/min/; GLUCOSE 176 mg/dL (70-99); POTASSIUM 4.7 MEQ/L (3.7-5.4); SODIUM 136 MEQ/L (136-147)
[2017-08-27 07:17] LABS: UREA NITROGEN (BUN) 31 mg/dL (9-23)
[2017-08-27 07:30] VITALS: BP 149/70
[2017-08-27 15:09] LABS: HEMATOCRIT 28.3 % (36.0-46.0); HEMOGLOBIN 8.9 G/DL (11.9-15.5); MCV 84.5 FL (83-99)
[2017-08-27 16:08] VITALS: BP 152/72
[2017-08-27 21:19] VITALS: BP 152/74
[2017-08-27 23:33] VITALS: BP 160/79
[2017-08-28 06:36] LABS: HEMATOCRIT 28.4 % (36.0-46.0); HEMOGLOBIN 8.8 G/DL (11.9-15.5); MCH 26.8 PG (29.0-34.0); MCV 86.6 FL (83-99); PLATELET COUNT 475 K/uL (156-360); RBC DIS.WIDTH-CV 15.6 % (11.8-14.6); RBC DIS.WIDTH-SD 49.9 % (39-53); RED BLOOD COUNT 3.28 M/uL (3.80-5.20); WHITE BLOOD COUNT 8.2 K/uL (4.1-10.2)
[2017-08-28 07:31] LABS: CHLORIDE 99 MEQ/L (99-109); CREATININE 1.2 MG/DL (0.6-1.3); GFR ESTIMATE (CALCULATED) 47 mL/min/; GLUCOSE 195 mg/dL (70-99); POTASSIUM 4.5 MEQ/L (3.7-5.4); SODIUM 139 MEQ/L (136-147); UREA NITROGEN (BUN) 28 mg/dL (9-23)
[2017-08-28 07:32] VITALS: BP 139/69
[2017-08-28 15:27] VITALS: BP 144/72
[2017-08-28] MEDS ORDERED: CIPROFLOXACIN250 MG PO (16:19)
[2017-08-28] MEDS ORDERED: NOVOLOG 10100 UNITS/ SC (16:20)
[2017-08-28] MEDS ORDERED: DAKINS SOLUTIO473 ML TP (16:20)
[2017-08-28] MEDS ORDERED: SSD25GM TP (16:21)
[2017-08-28] MEDS ORDERED: LEVEMIR100 UNIT/2 SC (16:21)
[2017-08-28 23:55] VITALS: BP 139/75
[2017-08-29 07:28] VITALS: BP 130/65
[2017-08-29] MEDS ORDERED: TRAMADOL HCL50 MG PO (12:18)
== END 2017-08-29 14:52 | DRG 854 ==
LOC: EME 20:23 → EDOF 08-14 03:51 → 5SOUTH 08-14 03:51 → ENRESERV 08-14 03:56 → 5SOUTH 08-14 05:03
PROVIDERS: Emergency Medicine; Hospitalist; Internal Medicine; Physician Assistant Medical; Surgery
PROC: 0Y6H0Z1 Detachment at Right Lower Leg, High, Open Approach (ICD-10-PCS; principal; 2017-08-16)
PROC: 0JBR0ZZ Excision of Left Foot Subcutaneous Tissue and Fascia, Open Approach (ICD-10-PCS; 2017-08-17)
DX: A41.9 Sepsis, unspecified organism (principal); R65.20 Severe sepsis without septic shock; M86.9 Osteomyelitis, unspecified; N17.9 Acute kidney failure, unspecified; Z86.718 Personal history of other venous thrombosis and embolism; E11.52 Type 2 diabetes mellitus with diabetic peripheral angiopathy with gangrene; E11.621 Type 2 diabetes mellitus with foot ulcer; E11.649 Type 2 diabetes mellitus with hypoglycemia without coma; E11.22 Type 2 diabetes mellitus with diabetic chronic kidney disease; I25.10 Atherosclerotic heart disease of native coronary artery without angina pectoris; Z87.891 Personal history of nicotine dependence; I10 Essential (primary) hypertension; N18.3 Chronic kidney disease, stage 3 (moderate); I87.2 Venous insufficiency (chronic) (peripheral); E11.628 Type 2 diabetes mellitus with other skin complications; E87.2 Acidosis; L97.529 Non-pressure chronic ulcer of other part of left foot with unspecified severity; E11.42 Type 2 diabetes mellitus with diabetic polyneuropathy; T87.43 Infection of amputation stump, right lower extremity; D72.829 Elevated white blood cell count, unspecified; I87.8 Other specified disorders of veins; Z91.19 Patient's noncompliance with other medical treatment and regimen; E11.69 Type 2 diabetes mellitus with other specified complication; E11.65 Type 2 diabetes mellitus with hyperglycemia; L89.312 Pressure ulcer of right buttock, stage 2; L89.620 Pressure ulcer of left heel, unstageable; L89.322 Pressure ulcer of left buttock, stage 2; I12.9 Hypertensive chronic kidney disease with stage 1 through stage 4 chronic kidney disease, or unspecified chronic kidney disease; L89.619 Pressure ulcer of right heel, unspecified stage; E87.1 Hypo-osmolality and hyponatremia; E87.5 Hyperkalemia; E66.9 Obesity, unspecified; Z79.899 Other long term (current) drug therapy; Z68.35 Body mass index [BMI] 35.0-35.9, adult; L97.519 Non-pressure chronic ulcer of other part of right foot with unspecified severity; Z79.01 Long term (current) use of anticoagulants; Z82.49 Family history of ischemic heart disease and other diseases of the circulatory system; Z83.3 Family history of diabetes mellitus; E86.9 Volume depletion, unspecified; L30.9 Dermatitis, unspecified; Z79.891 Long term (current) use of opiate analgesic; D63.8 Anemia in other chronic diseases classified elsewhere; M85.80 Other specified disorders of bone density and structure, unspecified site; E66.01 Morbid (severe) obesity due to excess calories; N39.0 Urinary tract infection, site not specified
CPT/HCPCS: 36600; 71045; 73630; 74176; 80047; 80048; 80048 91; 80053; 80069; 81003; 82803; 82948; 83036; 83605; 83690; 83735; 83880; 84100; 84484; 85014; 85018; 85025; 85027; 86850; 86900; 86901; 86920; 87040; 87070; 87075; 87077; 87086; 87106; 87186; 87205; 87493; 87641; 88307; 88311; 93971; 99281; 99285; A6260; J0692; J0696; J1170; J1644; J1815; J2020; J2185; J2250; J2274; J2405; J2543; J2765; J3370; J7030; J7042; J7050; P9016

== ENCOUNTER 2017-09-25 16:51 | Inpatient (IN) | payer OTHER ==
[~2017-09-25] VITALS: Ht 170.2 cm; Wt 99.9 kg
[~2017-09-25 16:51] MED LIST changes: +CIPROFLOXACIN250 MG PO; +DAKINS SOLUTIO473 ML TP; +LEVEMIR100 UNIT/2 SC; +SSD25GM TP
[2017-09-25 18:31] LABS: HEMATOCRIT 31.6 % (36.0-46.0); MCH 26.2 PG (29.0-34.0); MCHC 32.3 G/DL (30.0-36.0); MCV 81.2 FL (83-99); PLATELET COUNT 381 K/uL (156-360); RBC DIS.WIDTH-CV 15.7 % (11.8-14.6); RBC DIS.WIDTH-SD 46.3 % (39-53); WHITE BLOOD COUNT 12.7 K/uL (4.1-10.2)
[2017-09-25 18:33] LABS: HEMOGLOBIN 10.2 G/DL (11.9-15.5); RED BLOOD COUNT 3.89 M/uL (3.80-5.20)
[2017-09-25 18:40] LABS: ALBUMIN 2.7 g/dL (3.2-4.8); CHLORIDE 101 mEq/L (99-109); POTASSIUM 4.8 mEq/L (3.7-5.4); SODIUM 134 mEq/L (136-147)
[2017-09-25 18:43] LABS: TOTAL PROTEIN 7.3 g/dL (6.4-8.3)
[2017-09-25 18:44] LABS: TOTAL BILIRUBIN 0.4 mg/dL (0.0-1.0)
[2017-09-25 18:46] LABS: ALKALINE PHOSPHATASE 131 IU/L (3-129); CREATININE 3.1 mg/dL (0.6-1.3); GFR ESTIMATE (CALCULATED) 16 mL/min/
[2017-09-25 18:47] LABS: UREA NITROGEN (BUN) 67 mg/dL (9-23)
[2017-09-25 18:48] LABS: AST (GOT) 10 IU/L (2-34)
[2017-09-25 18:49] LABS: ALT (GPT) 11 IU/L (3-49)
[2017-09-25 18:51] LABS: TROP-I INTERPRETATION NEGATIVE; TROPONIN-I < 0.01 ng/mL (0.0-0.30)
[2017-09-25 18:59] LABS: GLUCOSE 539 mg/dL (70-99)
[2017-09-25] MEDS ORDERED: VITAMIN C1000 MG PO (21:04)
[2017-09-25] MEDS ORDERED: LEVEMIR100 UNIT/2 SC (21:04)
[2017-09-25] MEDS ORDERED: OXYCODONE HCL10 MG PO (21:04)
[2017-09-26 01:04] VITALS: BP 172/83
[2017-09-26 04:00] VITALS: BP 136/75
[2017-09-26 06:19] LABS: HEMATOCRIT 27.8 % (36.0-46.0); HEMOGLOBIN 8.9 G/DL (11.9-15.5); MCH 26.3 PG (29.0-34.0); MCV 82.2 FL (83-99); PLATELET COUNT 319 K/uL (156-360); RBC DIS.WIDTH-CV 15.7 % (11.8-14.6); RBC DIS.WIDTH-SD 47.3 % (39-53); RED BLOOD COUNT 3.38 M/uL (3.80-5.20); WHITE BLOOD COUNT 10.9 K/uL (4.1-10.2)
[2017-09-26 06:37] LABS: CHLORIDE 107 MEQ/L (99-109); POTASSIUM 4.4 MEQ/L (3.7-5.4); SODIUM 137 MEQ/L (136-147); UREA NITROGEN (BUN) 53 mg/dL (9-23)
[2017-09-26 06:40] LABS: CREATININE 2.5 MG/DL (0.6-1.3); GFR ESTIMATE (CALCULATED) 20 mL/min/; GLUCOSE 230 mg/dL (70-99)
[2017-09-26 07:24] VITALS: BP 146/70
[2017-09-26 10:18] LABS: HEMOGLOBIN A1c (GLYCOHEMOGLOB) 7.9 % (Below 5.7)
[2017-09-26 12:03] VITALS: BP 135/64
[2017-09-26 15:48] VITALS: BP 117/64
[2017-09-26 20:15] VITALS: BP 144/68
[2017-09-27] VITALS (7 sets, daily range): BP systolic 128–163; BP diastolic 62–74
[2017-09-27 05:43] LABS: BASOPHIL (%) 0.4 % (0-1); EOSINOPHIL (%) 8.3 % (0-5); EOSINOPHIL COUNT 0.8 K/uL (0-0.3); HEMOGLOBIN 8.3 G/DL (11.9-15.5); IMMATURE GRANULOCYTE (%) 0.5 % (0.0-0.7); LYMPHOCYTE (%) 31.1 % (15-42); LYMPHOCYTE COUNT 3.1 K/uL (1.0-2.8); MCH 25.7 PG (29.0-34.0); MCHC 30.7 G/DL (30.0-36.0); MCV 83.6 FL (83-99); MONOCYTE (%) 6.1 % (3-12); MONOCYTE COUNT 0.6 K/uL (0-0.8); NEUTROPHIL (%) 53.6 % (45-76); NEUTROPHIL COUNT 5.3 K/uL (1.8-6.4); PLATELET COUNT 303 K/uL (156-360); RBC DIS.WIDTH-CV 15.7 % (11.8-14.6); RBC DIS.WIDTH-SD 47.9 % (39-53); RED BLOOD COUNT 3.23 M/uL (3.80-5.20); WHITE BLOOD COUNT 9.8 K/uL (4.1-10.2)
[2017-09-27 06:17] LABS: ALBUMIN 1.8 G/DL (3.2-4.8); CHLORIDE 110 MEQ/L (99-109); CREATININE 2.2 MG/DL (0.6-1.3); GFR ESTIMATE (CALCULATED) 24 mL/min/; GLUCOSE 85 mg/dL (70-99); PHOSPHORUS 3.1 mg/dL (2.5-4.9); POTASSIUM 4.4 MEQ/L (3.7-5.4); SODIUM 139 MEQ/L (136-147); UREA NITROGEN (BUN) 47 mg/dL (9-23)
[2017-09-27 10:49] LABS: IRON 20 MCG/DL (35-150); TRANSFERRIN (TIBC) 104.5 mg/dL (215-380); TRANSFERRIN SATUR. 19 % (20-55)
[2017-09-28 03:09] VITALS: BP 146/68
[2017-09-28 08:38] VITALS: BP 121/67
[2017-09-28 09:59] LABS: BASOPHIL (%) 0.5 % (0-1); BASOPHIL COUNT 0.1 K/uL (0-0.1); EOSINOPHIL (%) 7.7 % (0-5); EOSINOPHIL COUNT 0.8 K/uL (0-0.3); HEMATOCRIT 29.6 % (36.0-46.0); HEMOGLOBIN 9.1 G/DL (11.9-15.5); IMMATURE GRANULOCYTE (%) 0.6 % (0.0-0.7); LYMPHOCYTE (%) 27.6 % (15-42); LYMPHOCYTE COUNT 2.7 K/uL (1.0-2.8); MCH 25.7 PG (29.0-34.0); MCHC 30.7 G/DL (30.0-36.0); MCV 83.6 FL (83-99); MONOCYTE COUNT 0.5 K/uL (0-0.8); NEUTROPHIL (%) 58.6 % (45-76); NEUTROPHIL COUNT 5.8 K/uL (1.8-6.4); PLATELET COUNT 340 K/uL (156-360); RBC DIS.WIDTH-CV 15.7 % (11.8-14.6); RBC DIS.WIDTH-SD 47.3 % (39-53); RED BLOOD COUNT 3.54 M/uL (3.80-5.20); WHITE BLOOD COUNT 9.8 K/uL (4.1-10.2)
[2017-09-28 10:24] LABS: CHLORIDE 111 MEQ/L (99-109); CREATININE 2.1 MG/DL (0.6-1.3); GFR ESTIMATE (CALCULATED) 25 mL/min/; GLUCOSE 95 mg/dL (70-99); SODIUM 140 MEQ/L (136-147); UREA NITROGEN (BUN) 40 mg/dL (9-23)
[2017-09-28 15:57] VITALS: BP 191/86
[2017-09-28 19:16] VITALS: BP 155/78
[2017-09-28 23:54] VITALS: BP 150/69
[2017-09-29 03:50] VITALS: BP 127/76
[2017-09-29 05:25] LABS: BASOPHIL (%) 0.5 % (0-1); BASOPHIL COUNT 0.1 K/uL (0-0.1); EOSINOPHIL (%) 7.3 % (0-5); EOSINOPHIL COUNT 0.7 K/uL (0-0.3); HEMATOCRIT 26.9 % (36.0-46.0); HEMOGLOBIN 8.3 G/DL (11.9-15.5); IMMATURE GRANULOCYTE (%) 0.8 % (0.0-0.7); LYMPHOCYTE (%) 32.5 % (15-42); LYMPHOCYTE COUNT 3.1 K/uL (1.0-2.8); MCH 25.7 PG (29.0-34.0); MCHC 30.9 G/DL (30.0-36.0); MCV 83.3 FL (83-99); MONOCYTE (%) 5.6 % (3-12); MONOCYTE COUNT 0.5 K/uL (0-0.8); NEUTROPHIL (%) 53.3 % (45-76); NEUTROPHIL COUNT 5.1 K/uL (1.8-6.4); PLATELET COUNT 305 K/uL (156-360); RBC DIS.WIDTH-CV 15.7 % (11.8-14.6); RBC DIS.WIDTH-SD 48.1 % (39-53); RED BLOOD COUNT 3.23 M/uL (3.80-5.20); WHITE BLOOD COUNT 9.6 K/uL (4.1-10.2)
[2017-09-29 06:12] LABS: CHLORIDE 108 MEQ/L (99-109); GFR ESTIMATE (CALCULATED) 26 mL/min/; MAGNESIUM 1.4 mg/dl (1.3-2.7); POTASSIUM 4.7 MEQ/L (3.7-5.4); SODIUM 139 MEQ/L (136-147); UREA NITROGEN (BUN) 35 mg/dL (9-23)
[2017-09-29 06:23] LABS: GLUCOSE 148 mg/dL (70-99)
[2017-09-29 07:30] VITALS: BP 147/77
[2017-09-29 11:29] VITALS: BP 150/80
[2017-09-29 15:53] VITALS: BP 143/72
[2017-09-29 19:22] VITALS: BP 161/76
[2017-09-30 00:14] VITALS: BP 143/73
[2017-09-30 04:16] VITALS: BP 168/77
[2017-09-30 06:03] LABS: HEMATOCRIT 27.6 % (36.0-46.0); HEMOGLOBIN 8.7 G/DL (11.9-15.5); MCH 26.3 PG (29.0-34.0); MCHC 31.5 G/DL (30.0-36.0); MCV 83.4 FL (83-99); PLATELET COUNT 322 K/uL (156-360); RBC DIS.WIDTH-CV 15.8 % (11.8-14.6); RBC DIS.WIDTH-SD 47.8 % (39-53); RED BLOOD COUNT 3.31 M/uL (3.80-5.20); WHITE BLOOD COUNT 9.6 K/uL (4.1-10.2)
[2017-09-30 06:47] LABS: CHLORIDE 107 MEQ/L (99-109); CREATININE 1.9 MG/DL (0.6-1.3); GFR ESTIMATE (CALCULATED) 28 mL/min/; POTASSIUM 4.7 MEQ/L (3.7-5.4); SODIUM 140 MEQ/L (136-147); UREA NITROGEN (BUN) 31 mg/dL (9-23)
[2017-09-30 06:50] LABS: GLUCOSE 89 mg/dL (70-99); MAGNESIUM 1.7 mg/dl (1.3-2.7)
[2017-09-30 09:01] VITALS: BP 141/84
[2017-09-30 16:26] VITALS: BP 139/67
[2017-09-30 19:21] VITALS: BP 144/66
[2017-09-30 23:42] VITALS: BP 138/63
[2017-10-01 04:13] VITALS: BP 143/73
[2017-10-01 06:32] LABS: HEMATOCRIT 26.6 % (36.0-46.0); HEMOGLOBIN 8.4 G/DL (11.9-15.5); MCH 26.3 PG (29.0-34.0); MCHC 31.6 G/DL (30.0-36.0); MCV 83.1 FL (83-99); PLATELET COUNT 300 K/uL (156-360); RBC DIS.WIDTH-CV 15.9 % (11.8-14.6); RBC DIS.WIDTH-SD 47.8 % (39-53); WHITE BLOOD COUNT 9.6 K/uL (4.1-10.2)
[2017-10-01 07:02] LABS: CHLORIDE 107 MEQ/L (99-109); CREATININE 1.9 MG/DL (0.6-1.3); GFR ESTIMATE (CALCULATED) 28 mL/min/; POTASSIUM 4.9 MEQ/L (3.7-5.4); SODIUM 140 MEQ/L (136-147); UREA NITROGEN (BUN) 28 mg/dL (9-23)
[2017-10-01 07:03] LABS: GLUCOSE 48 mg/dL (70-99)
[2017-10-01 08:10] VITALS: BP 130/69
[2017-10-01 16:08] VITALS: BP 177/77
[2017-10-01 19:46] VITALS: BP 161/73
[2017-10-02 00:13] VITALS: BP 159/74
[2017-10-02 03:59] VITALS: BP 134/71
[2017-10-02 06:26] LABS: ALBUMIN 1.8 G/DL (3.2-4.8); CHLORIDE 105 MEQ/L (99-109); GFR ESTIMATE (CALCULATED) 26 mL/min/; GLUCOSE 104 mg/dL (70-99); PHOSPHORUS 4.2 mg/dL (2.5-4.9); POTASSIUM 4.8 MEQ/L (3.7-5.4); SODIUM 138 MEQ/L (136-147); UREA NITROGEN (BUN) 27 mg/dL (9-23)
[2017-10-02 08:27] VITALS: BP 149/79
[2017-10-02 09:17] LABS: TROP-I INTERPRETATION NEGATIVE; TROPONIN-I < 0.01 ng/mL (0.0-0.30)
[2017-10-02 12:35] VITALS: BP 149/77
[2017-10-02 16:07] VITALS: BP 134/67
[2017-10-02 23:54] VITALS: BP 151/68
[2017-10-03 05:56] LABS: CHLORIDE 105 MEQ/L (99-109); GFR ESTIMATE (CALCULATED) 26 mL/min/; GLUCOSE 118 mg/dL (70-99); PHOSPHORUS 4.2 mg/dL (2.5-4.9); POTASSIUM 4.6 MEQ/L (3.7-5.4); SODIUM 137 MEQ/L (136-147); UREA NITROGEN (BUN) 28 mg/dL (9-23)
[2017-10-03 08:17] VITALS: BP 175/80
[2017-10-03] MEDS ORDERED: SSD25GM TP (13:46)
[2017-10-03] MEDS ORDERED: NOVOLOG 10100 UNITS/ SC (13:46)
[2017-10-03] MEDS ORDERED: LEVEMIR100 UNIT/2 SC (13:46)
[2017-10-03] MEDS ORDERED: DAKINS SOLUTIO473 ML TP (13:49)
[2017-10-03 23:35] VITALS: BP 153/69
[2017-10-04 06:15] LABS: ALBUMIN 1.9 G/DL (3.2-4.8); CHLORIDE 104 MEQ/L (99-109); CHLORIDE 105 MEQ/L (99-109); CREATININE 1.9 MG/DL (0.6-1.3); GFR ESTIMATE (CALCULATED) 26 mL/min/; GFR ESTIMATE (CALCULATED) 28 mL/min/; GLUCOSE 116 mg/dL (70-99); GLUCOSE 117 mg/dL (70-99); PHOSPHORUS 3.9 mg/dL (2.5-4.9); POTASSIUM 4.1 MEQ/L (3.7-5.4); SODIUM 138 MEQ/L (136-147); SODIUM 139 MEQ/L (136-147); UREA NITROGEN (BUN) 26 mg/dL (9-23); UREA NITROGEN (BUN) 27 mg/dL (9-23)
[2017-10-04 07:58] VITALS: BP 149/73
[2017-10-04 15:59] VITALS: BP 142/74
[2017-10-04 23:57] VITALS: BP 177/76
[2017-10-05 06:00] LABS: CHLORIDE 106 MEQ/L (99-109); CREATININE 1.9 MG/DL (0.6-1.3); GFR ESTIMATE (CALCULATED) 28 mL/min/; GLUCOSE 159 mg/dL (70-99); PHOSPHORUS 3.9 mg/dL (2.5-4.9); POTASSIUM 3.9 MEQ/L (3.7-5.4); SODIUM 139 MEQ/L (136-147); UREA NITROGEN (BUN) 25 mg/dL (9-23)
[2017-10-05 06:57] VITALS: BP 166/81
[2017-10-05 15:03] VITALS: BP 187/85
[2017-10-05] MEDS ORDERED: FUROSEMIDE40 MG PO (16:06)
[2017-10-05] MEDS ORDERED: METOPROLOL TA37.5 MG PO (16:07)
[2017-10-05 16:10] VITALS: BP 154/82
[2017-10-06] VITALS: BP 163/75
[2017-10-06 06:27] LABS: ALBUMIN 2.1 G/DL (3.2-4.8); CHLORIDE 103 MEQ/L (99-109); CREATININE 1.8 MG/DL (0.6-1.3); GFR ESTIMATE (CALCULATED) 30 mL/min/; PHOSPHORUS 3.8 mg/dL (2.5-4.9); POTASSIUM 3.9 MEQ/L (3.7-5.4); SODIUM 139 MEQ/L (136-147); UREA NITROGEN (BUN) 29 mg/dL (9-23)
[2017-10-06 06:29] LABS: GLUCOSE 109 mg/dL (70-99)
[2017-10-06 07:03] VITALS: BP 141/68
[2017-10-06 15:14] VITALS: BP 166/84
[2017-10-07 06:23] LABS: CHLORIDE 102 MEQ/L (99-109); CREATININE 1.7 MG/DL (0.6-1.3); GFR ESTIMATE (CALCULATED) 32 mL/min/; GLUCOSE 160 mg/dL (70-99); PHOSPHORUS 3.9 mg/dL (2.5-4.9); POTASSIUM 3.8 MEQ/L (3.7-5.4); SODIUM 139 MEQ/L (136-147); UREA NITROGEN (BUN) 26 mg/dL (9-23)
[2017-10-07 08:03] VITALS: BP 154/85
[2017-10-07 15:14] VITALS: BP 159/75
[2017-10-08 00:31] VITALS: BP 148/75
[2017-10-08 05:53] LABS: HEMATOCRIT 26.5 % (36.0-46.0); HEMOGLOBIN 8.4 G/DL (11.9-15.5); MCH 26.1 PG (29.0-34.0); MCHC 31.7 G/DL (30.0-36.0); MCV 82.3 FL (83-99); PLATELET COUNT 263 K/uL (156-360); RBC DIS.WIDTH-CV 15.6 % (11.8-14.6); RBC DIS.WIDTH-SD 45.5 % (39-53); RED BLOOD COUNT 3.22 M/uL (3.80-5.20); WHITE BLOOD COUNT 10.5 K/uL (4.1-10.2)
[2017-10-08 07:26] VITALS: BP 140/73
[2017-10-08 15:55] VITALS: BP 142/76
[2017-10-08 23:39] VITALS: BP 157/78
[2017-10-09 07:32] VITALS: BP 136/64
[2017-10-09 15:26] VITALS: BP 148/76
[2017-10-09 18:13] VITALS: BP 149/89
[2017-10-09 22:04] VITALS: BP 147/71
[2017-10-10 03:47] VITALS: BP 139/71
[2017-10-10 06:50] LABS: CHLORIDE 99 MEQ/L (99-109); CREATININE 1.9 MG/DL (0.6-1.3); GFR ESTIMATE (CALCULATED) 28 mL/min/; GLUCOSE 237 mg/dL (70-99); MAGNESIUM 1.6 mg/dl (1.3-2.7); SODIUM 137 MEQ/L (136-147); UREA NITROGEN (BUN) 37 mg/dL (9-23)
[2017-10-10 06:51] LABS: HEMATOCRIT 30.4 % (36.0-46.0); HEMOGLOBIN 9.8 G/DL (11.9-15.5); MCH 27.9 PG (29.0-34.0); MCHC 32.2 G/DL (30.0-36.0); PHOSPHORUS 5.3 mg/dL (2.5-4.9); PLATELET COUNT 286 K/uL (156-360); POTASSIUM 5.2 MEQ/L (3.7-5.4); RBC DIS.WIDTH-CV 16.2 % (11.8-14.6); RBC DIS.WIDTH-SD 51.3 % (39-53); RED BLOOD COUNT 3.51 M/uL (3.80-5.20); WHITE BLOOD COUNT 16.8 K/uL (4.1-10.2)
[2017-10-10 06:58] LABS: MCV 86.6 FL (83-99)
[2017-10-10 07:19] VITALS: BP 114/60
[2017-10-10 22:59] VITALS: BP 136/65
[2017-10-11 07:33] VITALS: BP 131/71
[2017-10-11 10:21] LABS: HEMATOCRIT 28.4 % (36.0-46.0); HEMOGLOBIN 8.9 G/DL (11.9-15.5); MCH 27.5 PG (29.0-34.0); MCHC 31.3 G/DL (30.0-36.0); MCV 87.7 FL (83-99); PLATELET COUNT 287 K/uL (156-360); RBC DIS.WIDTH-CV 16.5 % (11.8-14.6); RBC DIS.WIDTH-SD 52.2 % (39-53); RED BLOOD COUNT 3.24 M/uL (3.80-5.20); WHITE BLOOD COUNT 9.7 K/uL (4.1-10.2)
[2017-10-11 10:47] LABS: CHLORIDE 100 MEQ/L (99-109); CREATININE 2.1 MG/DL (0.6-1.3); GFR ESTIMATE (CALCULATED) 25 mL/min/; GLUCOSE 200 mg/dL (70-99); POTASSIUM 4.2 MEQ/L (3.7-5.4); SODIUM 138 MEQ/L (136-147); UREA NITROGEN (BUN) 41 mg/dL (9-23)
[2017-10-11 14:52] LABS: URIC ACID 8.8 mg/dL (3.1-9.2)
[2017-10-11 15:58] VITALS: BP 135/78
[2017-10-12 00:29] VITALS: BP 107/64
[2017-10-12 05:54] LABS: BASOPHIL (%) 0.4 % (0-1); EOSINOPHIL (%) 1.8 % (0-5); EOSINOPHIL COUNT 0.2 K/uL (0-0.3); HEMATOCRIT 27.1 % (36.0-46.0); HEMOGLOBIN 8.4 G/DL (11.9-15.5); IMMATURE GRANULOCYTE (%) 0.5 % (0.0-0.7); LYMPHOCYTE (%) 32.4 % (15-42); LYMPHOCYTE COUNT 3.5 K/uL (1.0-2.8); MCH 27.6 PG (29.0-34.0); MCV 89.1 FL (83-99); MONOCYTE (%) 6.1 % (3-12); MONOCYTE COUNT 0.7 K/uL (0-0.8); NEUTROPHIL (%) 58.8 % (45-76); NEUTROPHIL COUNT 6.4 K/uL (1.8-6.4); PLATELET COUNT 312 K/uL (156-360); RBC DIS.WIDTH-CV 17.1 % (11.8-14.6); RBC DIS.WIDTH-SD 55.6 % (39-53); RED BLOOD COUNT 3.04 M/uL (3.80-5.20); WHITE BLOOD COUNT 10.8 K/uL (4.1-10.2)
[2017-10-12 06:42] LABS: ALBUMIN 2.4 G/DL (3.2-4.8); ALKALINE PHOSPHATASE 109 IU/L (3-129); ALT (GPT) 6 IU/L (3-49); AST (GOT) 15 IU/L (2-34); CHLORIDE 98 MEQ/L (99-109); CREATININE 2.5 MG/DL (0.6-1.3); GFR ESTIMATE (CALCULATED) 20 mL/min/; GLUCOSE 155 mg/dL (70-99); SODIUM 137 MEQ/L (136-147); TOTAL BILIRUBIN 0.3 MG/DL (0.0-1.0); TOTAL PROTEIN 5.7 G/DL (6.4-8.3); UREA NITROGEN (BUN) 45 mg/dL (9-23)
[2017-10-12 07:11] VITALS: BP 127/63
[2017-10-12 15:04] VITALS: BP 135/65
[2017-10-12 17:40] LABS: URIC ACID 9.1 mg/dL (3.1-9.2)
[2017-10-13] VITALS: BP 129/71
[2017-10-13 06:06] LABS: HEMATOCRIT 27.7 % (36.0-46.0); HEMOGLOBIN 8.7 G/DL (11.9-15.5); MCH 27.6 PG (29.0-34.0); MCHC 31.4 G/DL (30.0-36.0); MCV 87.9 FL (83-99); PLATELET COUNT 322 K/uL (156-360); RBC DIS.WIDTH-CV 17.1 % (11.8-14.6); RBC DIS.WIDTH-SD 54.5 % (39-53); RED BLOOD COUNT 3.15 M/uL (3.80-5.20); WHITE BLOOD COUNT 15.8 K/uL (4.1-10.2)
[2017-10-13 06:27] LABS: ALBUMIN 2.4 G/DL (3.2-4.8); CHLORIDE 97 MEQ/L (99-109); CREATININE 2.7 MG/DL (0.6-1.3); GFR ESTIMATE (CALCULATED) 19 mL/min/; GLUCOSE 135 mg/dL (70-99); PHOSPHORUS 4.7 mg/dL (2.5-4.9); SODIUM 136 MEQ/L (136-147); UREA NITROGEN (BUN) 49 mg/dL (9-23)
[2017-10-13 07:05] VITALS: BP 130/61
[2017-10-13 15:13] VITALS: BP 119/61
[2017-10-14 00:36] VITALS: BP 118/59
[2017-10-14 06:23] LABS: HEMOGLOBIN 7.8 G/DL (11.9-15.5); MCH 27.4 PG (29.0-34.0); MCHC 31.2 G/DL (30.0-36.0); MCV 87.7 FL (83-99); PLATELET COUNT 303 K/uL (156-360); RBC DIS.WIDTH-CV 16.9 % (11.8-14.6); RBC DIS.WIDTH-SD 54.2 % (39-53); RED BLOOD COUNT 2.85 M/uL (3.80-5.20); WHITE BLOOD COUNT 13.5 K/uL (4.1-10.2)
[2017-10-14 06:49] LABS: ALBUMIN 2.1 G/DL (3.2-4.8); CHLORIDE 98 MEQ/L (99-109); CREATININE 2.3 MG/DL (0.6-1.3); GFR ESTIMATE (CALCULATED) 22 mL/min/; GLUCOSE 117 mg/dL (70-99); PHOSPHORUS 4.1 mg/dL (2.5-4.9); POTASSIUM 4.6 MEQ/L (3.7-5.4); SODIUM 134 MEQ/L (136-147); UREA NITROGEN (BUN) 50 mg/dL (9-23)
[2017-10-14 07:59] VITALS: BP 126/68
[2017-10-14 11:24] LABS: HEMATOCRIT 25.7 % (36.0-46.0); HEMOGLOBIN 8.2 G/DL (11.9-15.5); MCV 87.7 FL (83-99)
[2017-10-14 16:13] VITALS: BP 139/79
[2017-10-14] MEDS ORDERED: OXYCODONE HCL5 MG PO (17:26)
[2017-10-14] MEDS ORDERED: COLACE100 MG PO (17:26)
== END 2017-10-14 18:05 | DRG 475 ==
LOC: EME 16:51 → 5SOUTH 22:26 → EDOF 22:26 → ENRESERV 22:28 → 5SOUTH 23:48
PROVIDERS: Emergency Medicine; Family Medicine; Hospitalist; Internal Medicine; Internal Medicine Nephrology; Nurse Practitioner Family; Physician Assistant; Physician Assistant Medical; Surgery
PROC: 0JDN0ZZ Extraction of Right Lower Leg Subcutaneous Tissue and Fascia, Open Approach (ICD-10-PCS; 2017-10-04)
PROC: 0Y6C0Z3 Detachment at Right Upper Leg, Low, Open Approach (ICD-10-PCS; principal; 2017-10-11)
DX: T87.81 Dehiscence of amputation stump (principal); T87.53 Necrosis of amputation stump, right lower extremity; T87.43 Infection of amputation stump, right lower extremity; L03.115 Cellulitis of right lower limb; M86.9 Osteomyelitis, unspecified; Y83.5 Amputation of limb(s) as the cause of abnormal reaction of the patient, or of later complication, without mention of misadventure at the time of the procedure; N17.9 Acute kidney failure, unspecified; E83.42 Hypomagnesemia; L03.116 Cellulitis of left lower limb; L97.429 Non-pressure chronic ulcer of left heel and midfoot with unspecified severity; E86.1 Hypovolemia; E87.1 Hypo-osmolality and hyponatremia; E87.2 Acidosis; E87.8 Other disorders of electrolyte and fluid balance, not elsewhere classified; S81.819A Laceration without foreign body, unspecified lower leg, initial encounter; W18.30XA Fall on same level, unspecified, initial encounter; I12.9 Hypertensive chronic kidney disease with stage 1 through stage 4 chronic kidney disease, or unspecified chronic kidney disease; N18.4 Chronic kidney disease, stage 4 (severe); I87.2 Venous insufficiency (chronic) (peripheral); E11.40 Type 2 diabetes mellitus with diabetic neuropathy, unspecified; E11.22 Type 2 diabetes mellitus with diabetic chronic kidney disease; E11.51 Type 2 diabetes mellitus with diabetic peripheral angiopathy without gangrene; E11.621 Type 2 diabetes mellitus with foot ulcer; E11.65 Type 2 diabetes mellitus with hyperglycemia; E11.69 Type 2 diabetes mellitus with other specified complication; D50.9 Iron deficiency anemia, unspecified; D63.1 Anemia in chronic kidney disease; Z91.19 Patient's noncompliance with other medical treatment and regimen; E66.9 Obesity, unspecified; Z68.34 Body mass index [BMI] 34.0-34.9, adult; Z79.01 Long term (current) use of anticoagulants; Z79.4 Long term (current) use of insulin; Z86.718 Personal history of other venous thrombosis and embolism; Z87.891 Personal history of nicotine dependence; Z89.512 Acquired absence of left leg below knee
CPT/HCPCS: 71045; 71046; 80048; 80048 91; 80053; 80069; 81003; 82948; 83036; 83540; 83605; 83735; 84100; 84466; 84484; 84550; 85014; 85018; 85025; 85027; 86850; 86900; 86901; 86920; 87040; 87493; 88307; 93005; 99281; 99285; A6214; C1753; J0131; J0295; J0690; J1100; J1170; J1756; J1815; J1885; J2020; J2405; J2765; J3010; J3475; J7030; J7050; J7120; P9016

== ENCOUNTER 2017-10-18 15:11 | Emergency (ER) | payer OTHER ==
[~2017-10-18] VITALS: Ht 170.2 cm; Wt 87.0 kg
[~2017-10-18 15:11] MED LIST changes: +COLACE100 MG PO; +FUROSEMIDE40 MG PO; +METOPROLOL TA37.5 MG PO; +OXYCODONE HCL10 MG PO; +OXYCODONE HCL5 MG PO; +VITAMIN C1000 MG PO
[2017-10-18 16:16] LABS: HEMATOCRIT 29.3 % (36.0-46.0); HEMOGLOBIN 9.5 G/DL (11.9-15.5); MCH 27.9 PG (29.0-34.0); MCHC 32.4 G/DL (30.0-36.0); MCV 85.9 FL (83-99); RBC DIS.WIDTH-CV 16.7 % (11.8-14.6); RBC DIS.WIDTH-SD 52.1 % (39-53); RED BLOOD COUNT 3.41 M/uL (3.80-5.20); WHITE BLOOD COUNT 11.9 K/uL (4.1-10.2)
[2017-10-18 16:19] LABS: PLATELET COUNT 502 K/uL (156-360)
[2017-10-18 16:31] LABS: ALBUMIN 2.8 g/dL (3.2-4.8); CHLORIDE 95 mEq/L (99-109); SODIUM 134 mEq/L (136-147)
[2017-10-18 16:34] LABS: GLUCOSE 280 mg/dL (70-99)
[2017-10-18 16:36] LABS: TOTAL BILIRUBIN 0.3 mg/dL (0.0-1.0)
[2017-10-18 16:37] LABS: ALKALINE PHOSPHATASE 137 IU/L (3-129); GFR ESTIMATE (CALCULATED) 26 mL/min/
[2017-10-18 16:38] LABS: UREA NITROGEN (BUN) 32 mg/dL (9-23)
[2017-10-18 16:39] LABS: AST (GOT) 9 IU/L (2-34)
[2017-10-18 16:40] LABS: ALT (GPT) 6 IU/L (3-49)
[2017-10-18 19:36] LABS: APPEARANCE CLOUDY ((CLEAR)); BILIRUBIN NEGATIVE; BLOOD MODERATE; COLOR YELLOW ((YELLOW)); GLUCOSE (STRIP) NEGATIVE; KETONES NEGATIVE; LEUKOCYTES LARGE; NITRITE NEGATIVE; PROTEIN (STRIP) 30; SPECIFIC GRAVITY 1.006 (1.000-1.030); UROBILINOGEN 0.2 MG/DL (0.2-1.0)
[2017-10-18 20:21] LABS: EPITHELIAL CELLS 2+ /HPF; MUCUS NONE SEEN /LPF; WHITE BLOOD CELLS TNTC /HPF (0-5)
[2017-10-18 20:22] LABS: BACTERIA 2+ /HPF; UCUL ADDED? YES
[2017-10-18 20:23] LABS: OTHER BUDDING YEAST 1+
[2017-10-18] MEDS ORDERED: KEFLEX500 MG PO (20:39)
[2017-10-19 00:06] VITALS: BP 141/74
== END 2017-10-19 00:07 | disposition home or self-care (01) ==
LOC: EME 15:11
PROVIDERS: Nurse Practitioner Family
DX: L89.622 Pressure ulcer of left heel, stage 2 (principal); N39.0 Urinary tract infection, site not specified; Z48.01 Encounter for change or removal of surgical wound dressing; I49.8 Other specified cardiac arrhythmias; R94.31 Abnormal electrocardiogram [ECG] [EKG]; B96.5 Pseudomonas (aeruginosa) (mallei) (pseudomallei) as the cause of diseases classified elsewhere; I10 Essential (primary) hypertension; E11.9 Type 2 diabetes mellitus without complications; Z79.891 Long term (current) use of opiate analgesic; Z79.01 Long term (current) use of anticoagulants; Z87.891 Personal history of nicotine dependence; Z87.2 Personal history of diseases of the skin and subcutaneous tissue; Z98.890 Other specified postprocedural states; Z89.511 Acquired absence of right leg below knee; Z88.5 Allergy status to narcotic agent; Z88.1 Allergy status to other antibiotic agents
CPT/HCPCS: 80053; 81003; 85027; 87077; 93005; 99281; 99285

== ENCOUNTER 2017-10-22 18:38 | Observation (INO) | payer OTHER ==
[~2017-10-22] VITALS: Ht 170.2 cm; Wt 94.1 kg
[2017-10-22 19:58] LABS: BASOPHIL (%) 0.3 % (0-1); EOSINOPHIL COUNT 0.4 K/uL (0-0.3); HEMATOCRIT 29.6 % (36.0-46.0); HEMOGLOBIN 9.6 G/DL (11.9-15.5); LYMPHOCYTE (%) 24.6 % (15-42); LYMPHOCYTE COUNT 2.4 K/uL (1.0-2.8); MCHC 32.4 G/DL (30.0-36.0); MCV 86.3 FL (83-99); MONOCYTE COUNT 0.6 K/uL (0-0.8); NEUTROPHIL (%) 64.1 % (45-76); NEUTROPHIL COUNT 6.2 K/uL (1.8-6.4); PLATELET COUNT 454 K/uL (156-360); RBC DIS.WIDTH-CV 16.7 % (11.8-14.6); RBC DIS.WIDTH-SD 52.5 % (39-53); RED BLOOD COUNT 3.43 M/uL (3.80-5.20); WHITE BLOOD COUNT 9.7 K/uL (4.1-10.2)
[2017-10-22 20:04] LABS: INTER. NORMALIZED RATIO 2.2
[2017-10-22 20:07] LABS: PTT 32.3 SEC (25-37)
[2017-10-22 20:11] LABS: ALBUMIN 2.9 g/dL (3.2-4.8); CHLORIDE 100 mEq/L (99-109); POTASSIUM 3.3 mEq/L (3.7-5.4)
[2017-10-22 20:12] LABS: MAGNESIUM 1.7 mg/dL (1.3-2.7)
[2017-10-22 20:14] LABS: GLUCOSE 142 mg/dL (70-99); TOTAL PROTEIN 7.4 g/dL (6.4-8.3)
[2017-10-22 20:16] LABS: SODIUM 141 mEq/L (136-147); TOTAL BILIRUBIN 0.3 mg/dL (0.0-1.0)
[2017-10-22 20:17] LABS: ALKALINE PHOSPHATASE 116 IU/L (3-129); GFR ESTIMATE (CALCULATED) 26 mL/min/
[2017-10-22 20:18] LABS: UREA NITROGEN (BUN) 35 mg/dL (9-23)
[2017-10-22 20:19] LABS: AST (GOT) 13 IU/L (2-34)
[2017-10-22 20:20] LABS: ALT (GPT) 8 IU/L (3-49)
[2017-10-22 20:21] LABS: TROP-I INTERPRETATION NEGATIVE; TROPONIN-I 0.01 ng/mL (0.0-0.30)
[2017-10-22 21:27] LABS: APPEARANCE TURBID ((CLEAR)); BILIRUBIN NEGATIVE; BLOOD SMALL; COLOR AMBER ((YELLOW)); GLUCOSE (STRIP) NEGATIVE; KETONES NEGATIVE; LEUKOCYTES MODERATE; NITRITE NEGATIVE; PROTEIN (STRIP) 100; SPECIFIC GRAVITY 1.015 (1.000-1.030); UROBILINOGEN 0.2 MG/DL (0.2-1.0)
[2017-10-22 21:51] LABS: UCUL ADDED? YES; WHITE BLOOD CELLS TNTC /HPF (0-5)
[2017-10-22] MEDS ORDERED: KEFLEX500 MG PO (22:17)
[2017-10-22] MEDS ORDERED: LEVEMIR100 UNIT/2 SC (22:18)
[2017-10-23 00:48] VITALS: BP 169/98
[2017-10-23 06:09] LABS: BASOPHIL (%) 0.5 % (0-1); BASOPHIL COUNT 0.1 K/uL (0-0.1); EOSINOPHIL (%) 5.8 % (0-5); EOSINOPHIL COUNT 0.6 K/uL (0-0.3); HEMATOCRIT 26.2 % (36.0-46.0); HEMOGLOBIN 8.1 G/DL (11.9-15.5); IMMATURE GRANULOCYTE (%) 0.9 % (0.0-0.7); LYMPHOCYTE (%) 29.3 % (15-42); LYMPHOCYTE COUNT 2.9 K/uL (1.0-2.8); MCH 26.8 PG (29.0-34.0); MCHC 30.9 G/DL (30.0-36.0); MCV 86.8 FL (83-99); MONOCYTE (%) 7.9 % (3-12); MONOCYTE COUNT 0.8 K/uL (0-0.8); NEUTROPHIL (%) 55.6 % (45-76); NEUTROPHIL COUNT 5.5 K/uL (1.8-6.4); PLATELET COUNT 386 K/uL (156-360); RBC DIS.WIDTH-CV 16.7 % (11.8-14.6); RBC DIS.WIDTH-SD 53.3 % (39-53); RED BLOOD COUNT 3.02 M/uL (3.80-5.20); WHITE BLOOD COUNT 9.9 K/uL (4.1-10.2)
[2017-10-23 06:59] LABS: CHLORIDE 101 MEQ/L (99-109); CREATININE 2.1 MG/DL (0.6-1.3); GFR ESTIMATE (CALCULATED) 25 mL/min/; GLUCOSE 123 mg/dL (70-99); POTASSIUM 3.6 MEQ/L (3.7-5.4); SODIUM 143 MEQ/L (136-147); UREA NITROGEN (BUN) 35 mg/dL (9-23)
[2017-10-23 07:41] VITALS: BP 151/71
[2017-10-23 15:48] VITALS: BP 123/68
[2017-10-24] VITALS: BP 124/65
[2017-10-24 05:20] LABS: BASOPHIL (%) 0.6 % (0-1); BASOPHIL COUNT 0.1 K/uL (0-0.1); EOSINOPHIL (%) 8.9 % (0-5); EOSINOPHIL COUNT 0.8 K/uL (0-0.3); HEMATOCRIT 25.6 % (36.0-46.0); HEMOGLOBIN 8.1 G/DL (11.9-15.5); IMMATURE GRANULOCYTE (%) 0.7 % (0.0-0.7); LYMPHOCYTE (%) 31.8 % (15-42); LYMPHOCYTE COUNT 2.7 K/uL (1.0-2.8); MCH 27.6 PG (29.0-34.0); MCHC 31.6 G/DL (30.0-36.0); MCV 87.1 FL (83-99); MONOCYTE (%) 7.7 % (3-12); MONOCYTE COUNT 0.7 K/uL (0-0.8); NEUTROPHIL (%) 50.3 % (45-76); NEUTROPHIL COUNT 4.3 K/uL (1.8-6.4); PLATELET COUNT 355 K/uL (156-360); RBC DIS.WIDTH-CV 16.5 % (11.8-14.6); RBC DIS.WIDTH-SD 52.5 % (39-53); RED BLOOD COUNT 2.94 M/uL (3.80-5.20); WHITE BLOOD COUNT 8.6 K/uL (4.1-10.2)
[2017-10-24 06:20] LABS: CHLORIDE 102 MEQ/L (99-109); GFR ESTIMATE (CALCULATED) 26 mL/min/; POTASSIUM 4.2 MEQ/L (3.7-5.4); SODIUM 142 MEQ/L (136-147); UREA NITROGEN (BUN) 32 mg/dL (9-23)
[2017-10-24 06:22] LABS: GLUCOSE 62 mg/dL (70-99)
[2017-10-24 07:42] VITALS: BP 125/58
[2017-10-24 15:29] VITALS: BP 123/63
[2017-10-24 23:59] VITALS: BP 138/67
[2017-10-25 05:50] LABS: BASOPHIL (%) 0.6 % (0-1); BASOPHIL COUNT 0.1 K/uL (0-0.1); EOSINOPHIL COUNT 0.5 K/uL (0-0.3); HEMATOCRIT 27.1 % (36.0-46.0); HEMOGLOBIN 8.4 G/DL (11.9-15.5); IMMATURE GRANULOCYTE (%) 0.8 % (0.0-0.7); LYMPHOCYTE (%) 40.4 % (15-42); LYMPHOCYTE COUNT 3.6 K/uL (1.0-2.8); MCH 27.2 PG (29.0-34.0); MCV 87.7 FL (83-99); MONOCYTE (%) 6.6 % (3-12); MONOCYTE COUNT 0.6 K/uL (0-0.8); NEUTROPHIL (%) 45.6 % (45-76); NEUTROPHIL COUNT 4.1 K/uL (1.8-6.4); PLATELET COUNT 358 K/uL (156-360); RBC DIS.WIDTH-CV 16.6 % (11.8-14.6); RBC DIS.WIDTH-SD 53.1 % (39-53); RED BLOOD COUNT 3.09 M/uL (3.80-5.20)
[2017-10-25 06:17] LABS: CHLORIDE 100 MEQ/L (99-109); CREATININE 1.9 MG/DL (0.6-1.3); GFR ESTIMATE (CALCULATED) 28 mL/min/; POTASSIUM 4.8 MEQ/L (3.7-5.4); SODIUM 139 MEQ/L (136-147); UREA NITROGEN (BUN) 36 mg/dL (9-23)
[2017-10-25 06:19] LABS: GLUCOSE 217 mg/dL (70-99)
[2017-10-25 07:51] VITALS: BP 144/73
[2017-10-25 14:09] VITALS: BP 172/80
[2017-10-25 14:57] LABS: TROP-I INTERPRETATION NEGATIVE; TROPONIN-I 0.01 ng/mL (0.0-0.30)
[2017-10-25 15:48] VITALS: BP 168/76
[2017-10-26] VITALS: BP 147/70
[2017-10-26 05:38] LABS: BASOPHIL (%) 0.5 % (0-1); BASOPHIL COUNT 0.1 K/uL (0-0.1); EOSINOPHIL (%) 4.8 % (0-5); EOSINOPHIL COUNT 0.5 K/uL (0-0.3); HEMATOCRIT 26.7 % (36.0-46.0); HEMOGLOBIN 8.3 G/DL (11.9-15.5); IMMATURE GRANULOCYTE (%) 1.2 % (0.0-0.7); LYMPHOCYTE (%) 40.9 % (15-42); LYMPHOCYTE COUNT 3.8 K/uL (1.0-2.8); MCH 27.2 PG (29.0-34.0); MCHC 31.1 G/DL (30.0-36.0); MCV 87.5 FL (83-99); MONOCYTE (%) 5.4 % (3-12); MONOCYTE COUNT 0.5 K/uL (0-0.8); NEUTROPHIL (%) 47.2 % (45-76); NEUTROPHIL COUNT 4.4 K/uL (1.8-6.4); PLATELET COUNT 342 K/uL (156-360); RBC DIS.WIDTH-CV 16.4 % (11.8-14.6); RED BLOOD COUNT 3.05 M/uL (3.80-5.20); WHITE BLOOD COUNT 9.3 K/uL (4.1-10.2)
[2017-10-26 06:00] LABS: CHLORIDE 102 MEQ/L (99-109); CREATININE 1.8 MG/DL (0.6-1.3); GFR ESTIMATE (CALCULATED) 30 mL/min/; GLUCOSE 206 mg/dL (70-99); POTASSIUM 4.4 MEQ/L (3.7-5.4); SODIUM 140 MEQ/L (136-147); UREA NITROGEN (BUN) 35 mg/dL (9-23)
[2017-10-26 07:06] VITALS: BP 134/63
[2017-10-26 15:01] VITALS: BP 139/63
[2017-10-26 23:49] VITALS: BP 153/70
[2017-10-27 06:24] LABS: BASOPHIL (%) 0.7 % (0-1); BASOPHIL COUNT 0.1 K/uL (0-0.1); EOSINOPHIL (%) 4.3 % (0-5); EOSINOPHIL COUNT 0.5 K/uL (0-0.3); HEMATOCRIT 27.8 % (36.0-46.0); HEMOGLOBIN 8.6 G/DL (11.9-15.5); IMMATURE GRANULOCYTE (%) 0.8 % (0.0-0.7); LYMPHOCYTE (%) 32.4 % (15-42); LYMPHOCYTE COUNT 3.5 K/uL (1.0-2.8); MCH 27.6 PG (29.0-34.0); MCHC 30.9 G/DL (30.0-36.0); MCV 89.1 FL (83-99); MONOCYTE (%) 5.3 % (3-12); MONOCYTE COUNT 0.6 K/uL (0-0.8); NEUTROPHIL (%) 56.5 % (45-76); PLATELET COUNT 343 K/uL (156-360); RBC DIS.WIDTH-CV 16.5 % (11.8-14.6); RED BLOOD COUNT 3.12 M/uL (3.80-5.20); WHITE BLOOD COUNT 10.7 K/uL (4.1-10.2)
[2017-10-27 06:48] LABS: CHLORIDE 104 MEQ/L (99-109); CREATININE 1.6 MG/DL (0.6-1.3); GFR ESTIMATE (CALCULATED) 34 mL/min/; GLUCOSE 275 mg/dL (70-99); POTASSIUM 4.8 MEQ/L (3.7-5.4); SODIUM 139 MEQ/L (136-147); UREA NITROGEN (BUN) 44 mg/dL (9-23)
[2017-10-27 07:02] VITALS: BP 135/65
[2017-10-27 14:58] VITALS: BP 135/61
[2017-10-28 02:20] VITALS: BP 151/70
[2017-10-28 05:39] LABS: BASOPHIL (%) 0.6 % (0-1); BASOPHIL COUNT 0.1 K/uL (0-0.1); EOSINOPHIL (%) 6.2 % (0-5); EOSINOPHIL COUNT 0.7 K/uL (0-0.3); HEMATOCRIT 26.4 % (36.0-46.0); HEMOGLOBIN 8.1 G/DL (11.9-15.5); IMMATURE GRANULOCYTE (%) 0.8 % (0.0-0.7); LYMPHOCYTE (%) 37.6 % (15-42); LYMPHOCYTE COUNT 3.9 K/uL (1.0-2.8); MCH 27.3 PG (29.0-34.0); MCHC 30.7 G/DL (30.0-36.0); MCV 88.9 FL (83-99); MONOCYTE COUNT 0.6 K/uL (0-0.8); NEUTROPHIL (%) 48.8 % (45-76); NEUTROPHIL COUNT 5.1 K/uL (1.8-6.4); PLATELET COUNT 329 K/uL (156-360); RBC DIS.WIDTH-CV 16.5 % (11.8-14.6); RBC DIS.WIDTH-SD 54.2 % (39-53); RED BLOOD COUNT 2.97 M/uL (3.80-5.20); WHITE BLOOD COUNT 10.5 K/uL (4.1-10.2)
[2017-10-28 06:00] LABS: CHLORIDE 103 MEQ/L (99-109); CREATININE 1.7 MG/DL (0.6-1.3); GFR ESTIMATE (CALCULATED) 32 mL/min/; GLUCOSE 207 mg/dL (70-99); POTASSIUM 4.4 MEQ/L (3.7-5.4); SODIUM 140 MEQ/L (136-147); UREA NITROGEN (BUN) 54 mg/dL (9-23)
[2017-10-28 07:51] VITALS: BP 123/59
[2017-10-28 15:08] VITALS: BP 137/70
[2017-10-29 00:25] VITALS: BP 160/71
[2017-10-29 06:14] LABS: BASOPHIL (%) 0.6 % (0-1); BASOPHIL COUNT 0.1 K/uL (0-0.1); EOSINOPHIL (%) 6.4 % (0-5); EOSINOPHIL COUNT 0.6 K/uL (0-0.3); HEMATOCRIT 26.8 % (36.0-46.0); HEMOGLOBIN 8.4 G/DL (11.9-15.5); IMMATURE GRANULOCYTE (%) 0.8 % (0.0-0.7); LYMPHOCYTE (%) 33.8 % (15-42); LYMPHOCYTE COUNT 3.4 K/uL (1.0-2.8); MCH 27.6 PG (29.0-34.0); MCHC 31.3 G/DL (30.0-36.0); MCV 88.2 FL (83-99); MONOCYTE (%) 6.8 % (3-12); MONOCYTE COUNT 0.7 K/uL (0-0.8); NEUTROPHIL (%) 51.6 % (45-76); NEUTROPHIL COUNT 5.2 K/uL (1.8-6.4); PLATELET COUNT 305 K/uL (156-360); RBC DIS.WIDTH-CV 16.8 % (11.8-14.6); RBC DIS.WIDTH-SD 54.1 % (39-53); RED BLOOD COUNT 3.04 M/uL (3.80-5.20)
[2017-10-29 06:38] LABS: CHLORIDE 100 MEQ/L (99-109); CREATININE 1.9 MG/DL (0.6-1.3); GFR ESTIMATE (CALCULATED) 28 mL/min/; GLUCOSE 251 mg/dL (70-99); POTASSIUM 4.5 MEQ/L (3.7-5.4); SODIUM 138 MEQ/L (136-147); UREA NITROGEN (BUN) 62 mg/dL (9-23)
[2017-10-29 07:22] VITALS: BP 179/78
[2017-10-29] MEDS ORDERED: CIPROFLOXACIN500 M1 PO (14:48)
[2017-10-29] MEDS ORDERED: LEVEMIR100 UNIT/2 SC (14:50)
[2017-10-29] MEDS ORDERED: NOVOLOG 10100 UNITS/ SC (14:50)
[2017-10-29] MEDS ORDERED: ENDOCET 5-3251 EACH PO (14:51)
[2017-10-29 15:52] VITALS: BP 175/76
== END 2017-10-29 20:34 | disposition home or self-care (01) ==
LOC: EME 18:38 → 5SOUTH 23:09 → EDOF 23:09 → ENRESERV 23:11 → EDOF 10-23 00:28 → 5SOUTH 10-23 00:43
PROVIDERS: Emergency Medicine; Hospitalist; Internal Medicine
DX: L03.116 Cellulitis of left lower limb (principal); E11.69 Type 2 diabetes mellitus with other specified complication; L97.429 Non-pressure chronic ulcer of left heel and midfoot with unspecified severity; E66.01 Morbid (severe) obesity due to excess calories; Z68.32 Body mass index [BMI] 32.0-32.9, adult; I12.9 Hypertensive chronic kidney disease with stage 1 through stage 4 chronic kidney disease, or unspecified chronic kidney disease; N18.9 Chronic kidney disease, unspecified; E11.51 Type 2 diabetes mellitus with diabetic peripheral angiopathy without gangrene; Z89.611 Acquired absence of right leg above knee; Z86.19 Personal history of other infectious and parasitic diseases; E11.22 Type 2 diabetes mellitus with diabetic chronic kidney disease; N39.0 Urinary tract infection, site not specified; Z86.718 Personal history of other venous thrombosis and embolism; Z79.01 Long term (current) use of anticoagulants; Z79.4 Long term (current) use of insulin; Z87.891 Personal history of nicotine dependence; Z88.5 Allergy status to narcotic agent; Z82.49 Family history of ischemic heart disease and other diseases of the circulatory system; Z83.3 Family history of diabetes mellitus
CPT/HCPCS: 71045; 73610; 73718; 80048; 80053; 81003; 82948; 83605; 83735; 83880; 84484; 85025; 85610; 85730; 87040; 87070; 87075; 87077; 87086 GA; 87186; 87205; 93005; 97530 GO; 97530 GP; 99281; 99285; G0378; G8978 GP CM; G8979 GP CK; G8980 GP CM; G8987 GO CM; G8988 GO CM; G8989 GO CM; J0744; J1815; J2405; J2543; J3010; J7050

== ENCOUNTER 2017-12-05 04:54 | Inpatient (IN) | payer OTHER ==
[~2017-12-05] VITALS: Ht 170.2 cm; Wt 99.2 kg
[~2017-12-05 04:54] MED LIST changes: +CIPROFLOXACIN500 M1 PO; +ENDOCET 5-3251 EACH PO
[2017-12-05 05:45] LABS: BASOPHIL (%) 0.4 % (0-1); EOSINOPHIL (%) 2.8 % (0-5); EOSINOPHIL COUNT 0.3 K/uL (0-0.3); HEMATOCRIT 28.3 % (36.0-46.0); HEMOGLOBIN 9.3 G/DL (11.9-15.5); IMMATURE GRANULOCYTE (%) 0.4 % (0.0-0.7); LYMPHOCYTE (%) 25.8 % (15-42); LYMPHOCYTE COUNT 2.7 K/uL (1.0-2.8); MCHC 32.9 G/DL (30.0-36.0); MCV 82.3 FL (83-99); MONOCYTE (%) 5.5 % (3-12); MONOCYTE COUNT 0.6 K/uL (0-0.8); NEUTROPHIL (%) 65.1 % (45-76); NEUTROPHIL COUNT 6.8 K/uL (1.8-6.4); PLATELET COUNT 324 K/uL (156-360); RBC DIS.WIDTH-CV 15.7 % (11.8-14.6); RBC DIS.WIDTH-SD 46.9 % (39-53); RED BLOOD COUNT 3.44 M/uL (3.80-5.20); WHITE BLOOD COUNT 10.4 K/uL (4.1-10.2)
[2017-12-05 05:56] LABS: ALBUMIN 2.6 g/dL (3.2-4.8); CHLORIDE 104 mEq/L (99-109); SODIUM 137 mEq/L (136-147)
[2017-12-05 05:59] LABS: GLUCOSE 161 mg/dL (70-99); TOTAL PROTEIN 7.1 g/dL (6.4-8.3)
[2017-12-05 06:01] LABS: TOTAL BILIRUBIN 0.4 mg/dL (0.0-1.0)
[2017-12-05 06:02] LABS: ALKALINE PHOSPHATASE 115 IU/L (3-129)
[2017-12-05 06:03] LABS: CREATININE 1.3 mg/dL (0.6-1.3); GFR ESTIMATE (CALCULATED) 43 mL/min/
[2017-12-05 06:04] LABS: AST (GOT) 23 IU/L (2-34); UREA NITROGEN (BUN) 15 mg/dL (9-23)
[2017-12-05 06:05] LABS: ALT (GPT) 10 IU/L (3-49)
[2017-12-05 06:06] LABS: LIPASE 15 U/L (1.0-51.0)
[2017-12-05 06:07] LABS: TROP-I INTERPRETATION NEGATIVE; TROPONIN-I 0.02 ng/mL (0.0-0.30)
[2017-12-05 07:26] LABS: APPEARANCE TURBID ((CLEAR)); BILIRUBIN NEGATIVE; BLOOD MODERATE; COLOR YELLOW ((YELLOW)); GLUCOSE (STRIP) NEGATIVE; KETONES NEGATIVE; LEUKOCYTES LARGE; NITRITE NEGATIVE; PROTEIN (STRIP) 30; SPECIFIC GRAVITY 1.009 (1.000-1.030); UROBILINOGEN 0.2 MG/DL (0.2-1.0)
[2017-12-05] MEDS ORDERED: LOPRESSOR25 MG PO (07:33)
[2017-12-05] MEDS ORDERED: LEVEMIR100 UNIT/2 SC (07:34)
[2017-12-05] MEDS ORDERED: CLEOCIN300 MG PO (07:36)
[2017-12-05 07:51] LABS: UCUL ADDED? YES; WHITE BLOOD CELLS TNTC /HPF (0-5)
[2017-12-05 08:01] LABS: POTASSIUM 3.9 MEQ/L (3.7-5.4)
[2017-12-05 08:37] VITALS: BP 176/77
[2017-12-05 11:44] VITALS: BP 161/70
[2017-12-05 13:05] LABS: TROP-I INTERPRETATION NEGATIVE; TROPONIN-I < 0.01 ng/mL (0.0-0.30)
[2017-12-05 15:31] VITALS: BP 128/60
[2017-12-05 17:44] LABS: TROP-I INTERPRETATION NEGATIVE; TROPONIN-I 0.01 ng/mL (0.0-0.30)
[2017-12-05 19:45] VITALS: BP 104/57
[2017-12-05 23:25] VITALS: BP 99/55
[2017-12-06 02:48] LABS: C DIFF TOXIN NEGATIVE (NEGATIVE)
[2017-12-06 03:25] VITALS: BP 105/56
[2017-12-06 06:17] LABS: HEMOGLOBIN 7.6 G/DL (11.9-15.5); MCHC 30.4 G/DL (30.0-36.0); MCV 85.6 FL (83-99); PLATELET COUNT 274 K/uL (156-360); RBC DIS.WIDTH-CV 15.4 % (11.8-14.6); RBC DIS.WIDTH-SD 48.3 % (39-53); RED BLOOD COUNT 2.92 M/uL (3.80-5.20); WHITE BLOOD COUNT 6.9 K/uL (4.1-10.2)
[2017-12-06 06:40] LABS: CHLORIDE 104 MEQ/L (99-109); CREATININE 1.4 MG/DL (0.6-1.3); GFR ESTIMATE (CALCULATED) 40 mL/min/; POTASSIUM 4.3 MEQ/L (3.7-5.4); SODIUM 139 MEQ/L (136-147)
[2017-12-06 06:42] LABS: GLUCOSE 69 mg/dL (70-99); UREA NITROGEN (BUN) 23 mg/dL (9-23)
[2017-12-06 07:35] VITALS: BP 142/71
[2017-12-06 11:25] VITALS: BP 165/69
[2017-12-06 16:18] VITALS: BP 170/74
[2017-12-06 20:21] VITALS: BP 141/64
[2017-12-07] VITALS (7 sets, daily range): BP systolic 120–160; BP diastolic 67–78
[2017-12-07 06:35] LABS: BASOPHIL (%) 0.4 % (0-1); EOSINOPHIL (%) 5.7 % (0-5); EOSINOPHIL COUNT 0.4 K/uL (0-0.3); HEMATOCRIT 26.5 % (36.0-46.0); HEMOGLOBIN 8.1 G/DL (11.9-15.5); IMMATURE GRANULOCYTE (%) 0.4 % (0.0-0.7); LYMPHOCYTE (%) 32.7 % (15-42); LYMPHOCYTE COUNT 2.5 K/uL (1.0-2.8); MCHC 30.6 G/DL (30.0-36.0); MCV 84.9 FL (83-99); MONOCYTE (%) 5.7 % (3-12); MONOCYTE COUNT 0.4 K/uL (0-0.8); NEUTROPHIL (%) 55.1 % (45-76); NEUTROPHIL COUNT 4.2 K/uL (1.8-6.4); PLATELET COUNT 290 K/uL (156-360); RBC DIS.WIDTH-CV 15.3 % (11.8-14.6); RBC DIS.WIDTH-SD 47.2 % (39-53); RED BLOOD COUNT 3.12 M/uL (3.80-5.20); WHITE BLOOD COUNT 7.7 K/uL (4.1-10.2)
[2017-12-07 06:59] LABS: CHLORIDE 105 MEQ/L (99-109); CREATININE 1.5 MG/DL (0.6-1.3); GFR ESTIMATE (CALCULATED) 37 mL/min/; POTASSIUM 4.7 MEQ/L (3.7-5.4); SODIUM 140 MEQ/L (136-147); UREA NITROGEN (BUN) 24 mg/dL (9-23)
[2017-12-07 07:01] LABS: GLUCOSE 202 mg/dL (70-99)
[2017-12-08 04:00] VITALS: BP 152/76
[2017-12-08 08:24] VITALS: BP 166/82
[2017-12-08 08:44] LABS: HEMATOCRIT 27.5 % (36.0-46.0); HEMOGLOBIN 8.4 G/DL (11.9-15.5); MCHC 30.5 G/DL (30.0-36.0); MCV 85.1 FL (83-99); PLATELET COUNT 337 K/uL (156-360); RBC DIS.WIDTH-CV 15.4 % (11.8-14.6); RBC DIS.WIDTH-SD 47.9 % (39-53); RED BLOOD COUNT 3.23 M/uL (3.80-5.20)
[2017-12-08 16:58] VITALS: BP 150/80
[2017-12-08 19:30] VITALS: BP 159/74
[2017-12-08 23:18] VITALS: BP 140/63
[2017-12-09 05:45] LABS: BASOPHIL (%) 0.7 % (0-1); BASOPHIL COUNT 0.1 K/uL (0-0.1); EOSINOPHIL (%) 6.8 % (0-5); EOSINOPHIL COUNT 0.6 K/uL (0-0.3); HEMOGLOBIN 7.9 G/DL (11.9-15.5); IMMATURE GRANULOCYTE (%) 0.3 % (0.0-0.7); LYMPHOCYTE (%) 33.5 % (15-42); LYMPHOCYTE COUNT 2.9 K/uL (1.0-2.8); MCH 25.8 PG (29.0-34.0); MCHC 30.4 G/DL (30.0-36.0); MONOCYTE (%) 6.3 % (3-12); MONOCYTE COUNT 0.6 K/uL (0-0.8); NEUTROPHIL (%) 52.4 % (45-76); NEUTROPHIL COUNT 4.6 K/uL (1.8-6.4); PLATELET COUNT 343 K/uL (156-360); RBC DIS.WIDTH-CV 15.4 % (11.8-14.6); RBC DIS.WIDTH-SD 48.3 % (39-53); RED BLOOD COUNT 3.06 M/uL (3.80-5.20); WHITE BLOOD COUNT 8.7 K/uL (4.1-10.2)
[2017-12-09 05:59] LABS: CHLORIDE 103 MEQ/L (99-109); CREATININE 1.5 MG/DL (0.6-1.3); GFR ESTIMATE (CALCULATED) 37 mL/min/; GLUCOSE 146 mg/dL (70-99); POTASSIUM 4.6 MEQ/L (3.7-5.4); SODIUM 139 MEQ/L (136-147); UREA NITROGEN (BUN) 25 mg/dL (9-23)
[2017-12-09 07:20] VITALS: BP 160/80
[2017-12-09] MEDS ORDERED: METRONIDAZOLE500 MG PO (08:44)
[2017-12-09 16:19] VITALS: BP 142/80
[2017-12-09 22:58] VITALS: BP 154/74
[2017-12-10 07:50] VITALS: BP 158/80
[2017-12-10 15:38] VITALS: BP 176/76
== END 2017-12-10 17:52 | DRG 690 ==
LOC: EME → EDBD 05:13 → 2EAST 07:38 → EDOF 07:38 → ENRESERV 07:43 → 2EAST 08:24
PROVIDERS: Emergency Medicine; Hospitalist; Internal Medicine
DX: N39.0 Urinary tract infection, site not specified (principal); A04.72 Enterocolitis due to Clostridium difficile, not specified as recurrent; L03.116 Cellulitis of left lower limb; E11.621 Type 2 diabetes mellitus with foot ulcer; L97.421 Non-pressure chronic ulcer of left heel and midfoot limited to breakdown of skin; L97.229 Non-pressure chronic ulcer of left calf with unspecified severity; E11.51 Type 2 diabetes mellitus with diabetic peripheral angiopathy without gangrene; E11.42 Type 2 diabetes mellitus with diabetic polyneuropathy; E11.22 Type 2 diabetes mellitus with diabetic chronic kidney disease; I12.9 Hypertensive chronic kidney disease with stage 1 through stage 4 chronic kidney disease, or unspecified chronic kidney disease; N18.3 Chronic kidney disease, stage 3 (moderate); M25.512 Pain in left shoulder; D64.9 Anemia, unspecified; I87.2 Venous insufficiency (chronic) (peripheral); I89.0 Lymphedema, not elsewhere classified; E66.01 Morbid (severe) obesity due to excess calories; Z68.34 Body mass index [BMI] 34.0-34.9, adult; Z79.01 Long term (current) use of anticoagulants; Z79.4 Long term (current) use of insulin; Z86.718 Personal history of other venous thrombosis and embolism; Z87.891 Personal history of nicotine dependence; Z89.611 Acquired absence of right leg above knee; Z22.39 Carrier of other specified bacterial diseases
CPT/HCPCS: 71045; 74176; 80048; 80053; 81003; 82948; 83690; 84484; 84999; 85025; 85027; 87040; 87070; 87075; 87077; 87081; 87086; 87147; 87186; 87205; 87493; 87641; 93005; 97530 GO; 99281; 99285; J1815; J2270; J2405; J2543; J3010; J7050